=== PATIENT | female | born 1950 | race Caucasian/White ===

== ENCOUNTER → 2023-10-25 15:37 | Outpatient (REF) | payer MEDICARE, OTHER, SELFPAY ==
[2023-10-25 16:16] LABS: Urine Albumin Negative (Neg - Trace); Urine Bilirubin Negative (Negative); Urine Character Clear (Clear); Urine Color Yellow; Urine Glucose Negative (Negative); Urine Ketone Trace (Negative); Urine Leukocyte 1+ (Negative); Urine Nitrite Negative (Negative); Urine Occult Blood Negative (Negative); Urine Urobilinogen 1+ (Neg - 1+)
[2023-10-25 16:17] LABS: % Basophils 0.3 % (0-2); % Eosinophils 0.7 % (0-6); % Immature Granulocytes 0.5 % (0-0.5); % Lymphocytes 15.8 % (20.5-51.1); % Monocytes 8.2 % (1.7-9.3); % Neutrophils 74.5 % (42.2-75.2); Absolute Eosinophils 0.1 10^3/uL (0-0.7); Absolute Immature Granulocytes 0.1 10^3/uL (0-0.05); Absolute Lymphocytes 1.7 10^3/uL (1.2-3.4); Absolute Monocytes 0.9 10^3/uL (0.1-0.6); Absolute Neutrophils 8.1 10^3/uL (1.4-6.5); Hematocrit 40.3 % (37.0-47.0); Hemoglobin 13.9 g/dL (12.0-16.0); Mean Corp Hgb Conc. 34.5 g/dL (33.0-37.0); Mean Corpuscular Hgb 31.1 pg (27.0-31.0); Mean Corpuscular Volume 90.2 fL (81.0-99.0); Mean Platelet Volume 9.5 fL (7.4-10.4); Nucleated Red Blood Cells % 0 %; Platelet Count 234 10^3/uL (130-400); Red Blood Cell Count 4.47 10^6/uL (4.20-5.40); Red Cell Dist. Width 13.4 % (11.5-14.5); White Blood Cell Count 10.9 10^3/uL (4.8-10.8)
[2023-10-25 16:23] LABS: Urine Red Blood Cell None Seen /HPF (0-2)
[2023-10-25 16:40] LABS: ALT (SGPT) 16 U/L (0-35); AST (SGOT) 23 U/L (14-36); Albumin 4.3 g/dl (3.5-5.0); Alkaline Phosphatase 68 U/L (38-126); Blood Urea Nitrogen 17 mg/dl (7-17); Calcium 9.6 mg/dl (8.4-10.2); Carbon Dioxide 28 mmol/L (22-30); Chloride 102 mmol/L (98-107); Glucose 99 mg/dl (70-99); Lipase 345 U/L (23-300); Sodium 136 mmol/L (135-145); Total Bilirubin 0.7 mg/dl (0.2-1.3); Total Protein 7.2 g/dl (6.3-8.2); eGFR > 60.00
== END ==
LOC: REG 15:37
PROVIDERS: ATTENDING PHYSICIAN Nurse Practitioner Adult Health
DX: Z09 Encounter for follow-up examination after completed treatment for conditions other than malignant neoplasm (principal); R79.9 Abnormal finding of blood chemistry, unspecified; R82.90 Unspecified abnormal findings in urine; R74.8 Abnormal levels of other serum enzymes
CPT/HCPCS: 36415; 80053; 81003; 81015; 83690; 85025; 87086

== ENCOUNTER 2023-11-19 13:55 | Inpatient (IN) | payer MEDICARE, OTHER, SELFPAY ==
[2023-11-19] VITALS (7 sets, daily range): BP systolic 110–158; BP diastolic 65–89; BMI 24.3
--- NOTE | 2023-11-19 09:54 | ED.GENMED ---
History of Present Illness
<Rahat Rodriguez DO - Last Filed: 11/19/23 09:54>
General
Chief Complaint: Dizziness
Time Seen by Provider: 11/19/23 08:05
Travel History
Have you had any contact with someone who has COVID-19?: No
Do you have any symptoms of coronavirus? Fever > 100 degrees, chills, cough, shortness of breath, sore throat, loss of taste or smell, muscle aches, or headache?: No
<MARQUISE Adrian - Last Filed: 11/19/23 14:20>
General
Source: patient
Exam Limitations: none
Nursing documentation reviewed up to this point in time: agreed with
History of Present Illness
History of Present Illness:
Patient is a 73-year-old male brought to the ER by for evaluation. ports patient has had intermittent memory issues confusion over the past several days associated with dizziness, increased lethargy neck pain and double vision from
her right eye. Has reports patient's balance is off. He does report the patient was hospitalized intermittently in September for diarrhea vomiting cause was unknown. She was hospitalized in the [facility] in [facility].
Patient presents awake alert she is aware that she is confused she does admit to feeling neck pain double vision.
She denies any injury denies any chiropractic manipulation. Has not reports she has intermittent chills.
<MARQUISE Adrian - Last Filed: 11/19/23 14:20>
Review of Systems
Allergies reviewed?: Yes
All Other Systems: ROS reviewed and negative except as documented in HPI and ROS
Constitutional: Reports fatigue and chills
EENT: Reports other (double vision from right eye)
Respiratory: Reports no symptoms
Cardiac: Reports no symptoms
: Reports no symptoms
Musculoskeletal: Reports neck pain
Skin: Reports no symptoms; Denies rash
Neurological: Reports dizzy; Denies headache
Psychiatric: Reports no symptoms
<MARQUISE Adrian - Last Filed: 11/19/23 14:20>
General Physical Exam
General Presentation: no apparent distress
General age: appears stated age
General Skin: warm and dry
General Habitus: normal
General Mental: alert
General Hydration: dry mucous membranes
Eye Exam
Eye Exam: PERRL and other (extraoculuar movements not intact, left eye with deficit of movement to the midline + nystagmus left eye horizontal)
Eye Exam General: PERRL: bilateral
Pupil Exam: Bilateral: round and reactive
Cardiovascular Exam
Cardiovascular Exam: regular rate/rhythm, no murmur and normal peripheral pulses
Pulmonary Exam
Pulmonary Exam: lungs clear and no respiratory distress
Gastrointestinal Exam
Gastrointestinal Exam: non tender and soft
Neurological Exam
Neurological Exam: alert, oriented x3, no motor deficits, no sensory deficits and speech normal
Loc Coma Scale
Eye Opening: Spontaneous
Verbal Response: Oriented
Motor Response: Obeys Commands
GCS Total Score: 15
Cerebellar
Cerebellar Function: normal finger to nose
Musculoskeletal Exam
Musculoskeletal Exam: full ROM
Skin Exam
Skin Exam: normal color and warm/dry
Psychiatric Exam
Psychiatric Exam: normal mood/affect
Course
<Rahat Rodriguez DO - Last Filed: 11/19/23 09:54>
Orders/Labs/Results
Orders:
Orders
11/19/23 09:42
CT Head W/o Iv Contrast Urgent
Comment:
Reason For Exam: double vision headache confusion
IV Insert/Care/Rem.- Treatment PRN
11/19/23 10:01
Complete Blood Count/With Diff Urgent
Comprehensive Metabolic Panel Urgent
Vitamin B12 Urgent
Comment: ADD ON
11/19/23 10:32
CT Head & Neck Angio W/wo IV Urgent
Comment:
Reason For Exam: Dizziness, vision changes, neck pain
11/19/23 12:13
Aspirin 325 mg PO NOW STA
11/19/23 12:19
Electrocardiogram (*1) Stat
Reason for Study: Other
Other Reason for Exam: chest pain
EKG- Treatment ONCE
11/19/23 12:26
MR Brain W/o & With Contrast Routine
Comment: Any findings of Wernicke vs infarct
Reason For Exam: Left sided internuclear ophthalmoplegia
Recent pill cam endoscopy?: No
Ondansetron Injectable [Zofran] 4 mg IV NOW STA
NIH Stroke Scale As Directed
Directions: Per protocol
Neurological Checks As Directed
Frequency: Per unit guidelines
11/19/23 12:27
Add On- LAB Urgent
Tests Added?: Vitamin B1 and B12
Echo 2D MMode Color/Doppler Routine
Reason for Study: Thrombotic source for stroke-like sxs
11/19/23 12:44
STOOL [C difficile Antigen & Toxins] Urgent
MANUEL Source: Feces/Stool
Specimen Description:
Date Specimen was Collected: 11/19/23
Time Specimen was Collected: 12:41
Stool Culture Urgent
MANUEL Source: Feces/Stool
Specimen Description:
Date Specimen was Collected: 11/19/23
Time Specimen was Collected: 12:41
11/19/23 13:00
Thiamine Injection 500 mg 0.9% Sodium Chloride 250 ml [Nss] 250 ml IV Q8
11/19/23 13:35
Admit/Transfer Patient As Directed
Co-Sign Provider:
Level of Care: Inpatient admission
Assign to:: Telemetry
Physician / Group: Hospitalist
Diagnosis: ALMAZ
Reason for Telemetry: CVA/TIA
Date to Stop Telemetry: 11/22/23
Time to Stop Telemetry: 11:00
Reason for Hospitalization: CVA/TIA
Expected length of stay greater than two midnights?: Yes
ELOS- Estimated Length of Stay in days: 2
I certify the patient meets the requirements for IP care: Yes
11/19/23 13:36
Code Status As Directed
Resuscitation Status: Full Code
11/20/23 06:00
Cardiovascular Evaluation IN AM
Glycohemoglobin (HgbA1c) IN AM
11/20/23 08:00
Aspirin Low Dose EC [Aspir Low (Enteric Coated)] 81 mg PO DAILY
11/22/23 11:00
DC Protocol for Telemetry ONCE
Abnormal Lab Results
11/19/23
10:01
Absolute Neuts (auto) 7.5 H 10^3/uL
(1.4-6.5)
Absolute Lymphs (auto) 1.0 L 10^3/uL
(1.2-3.4)
Absolute Monos (auto) 0.8 H 10^3/uL
(0.1-0.6)
Neutrophils % 79.8 H %
(42.2-75.2)
Lymphocytes % 10.8 L %
(20.5-51.1)
Sodium 134 L mmol/L
(135-145)
Glucose 123 H mg/dl
(70-99)
11/19/23 10:01
11/19/23 10:01
Vital Signs
Initial and Last Documented VS:
Initial Vital Signs
Temp Pulse Resp BP Pulse Ox
98.4 F 92 16 147/89 97
11/19/23 07:16 11/19/23 07:16 11/19/23 07:16 11/19/23 07:16 11/19/23 07:16
Last Documented Vital Signs
Temp Pulse Resp BP Pulse Ox
98.4 F 84 16 126/76 97
03/03/24 07:16 11/19/23 13:00 11/19/23 13:00 11/19/23 13:00 11/19/23 13:00
<MARQUISE Adrian - Last Filed: 11/19/23 14:20>
Orders/Labs/Results
Orders:
Orders
11/19/23 09:42
CT Head W/o Iv Contrast Urgent
Comment:
Reason For Exam: double vision headache confusion
IV Insert/Care/Rem.- Treatment PRN
11/19/23 10:01
Complete Blood Count/With Diff Urgent
Comprehensive Metabolic Panel Urgent
Vitamin B12 Urgent
Comment: ADD ON
11/19/23 10:32
CT Head & Neck Angio W/wo IV Urgent
Comment:
Reason For Exam: Dizziness, vision changes, neck pain
11/19/23 12:13
Aspirin 325 mg PO NOW STA
11/19/23 12:19
Electrocardiogram (*1) Stat
Reason for Study: Other
Other Reason for Exam: chest pain
EKG- Treatment ONCE
11/19/23 12:26
MR Brain W/o & With Contrast Routine
Comment: Any findings of Wernicke vs infarct
Reason For Exam: Left sided internuclear ophthalmoplegia
Recent pill cam endoscopy?: No
Ondansetron Injectable [Zofran] 4 mg IV NOW STA
NIH Stroke Scale As Directed
Directions: Per protocol
Neurological Checks As Directed
Frequency: Per unit guidelines
11/19/23 12:27
Add On- LAB Urgent
Tests Added?: Vitamin B1 and B12
Echo 2D MMode Color/Doppler Routine
Reason for Study: Thrombotic source for stroke-like sxs
11/19/23 12:44
STOOL [C difficile Antigen & Toxins] Urgent
MANUEL Source: Feces/Stool
Specimen Description:
Date Specimen was Collected: 11/19/23
Time Specimen was Collected: 12:41
Stool Culture Urgent
MANUEL Source: Feces/Stool
Specimen Description:
Date Specimen was Collected: 11/19/23
Time Specimen was Collected: 12:41
11/19/23 13:00
Thiamine Injection 500 mg 0.9% Sodium Chloride 250 ml [Nss] 250 ml IV Q8
11/19/23 13:35
Admit/Transfer Patient As Directed
Co-Sign Provider:
Level of Care: Inpatient admission
Assign to:: Telemetry
Physician / Group: Hospitalist
Diagnosis: ALMAZ
Reason for Telemetry: CVA/TIA
Date to Stop Telemetry: 11/22/23
Time to Stop Telemetry: 11:00
Reason for Hospitalization: CVA/TIA
Expected length of stay greater than two midnights?: Yes
ELOS- Estimated Length of Stay in days: 2
I certify the patient meets the requirements for IP care: Yes
11/19/23 13:36
Code Status As Directed
Resuscitation Status: Full Code
11/20/23 06:00
Cardiovascular Evaluation IN AM
Glycohemoglobin (HgbA1c) IN AM
11/20/23 08:00
Aspirin Low Dose EC [Aspir Low (Enteric Coated)] 81 mg PO DAILY
11/22/23 11:00
DC Protocol for Telemetry ONCE
Abnormal Lab Results
11/19/23
10:01
Absolute Neuts (auto) 7.5 H 10^3/uL
(1.4-6.5)
Absolute Lymphs (auto) 1.0 L 10^3/uL
(1.2-3.4)
Absolute Monos (auto) 0.8 H 10^3/uL
(0.1-0.6)
Neutrophils % 79.8 H %
(42.2-75.2)
Lymphocytes % 10.8 L %
(20.5-51.1)
Sodium 134 L mmol/L
(135-145)
Glucose 123 H mg/dl
(70-99)
11/19/23 10:01
11/19/23 10:01
Vital Signs
Initial and Last Documented VS:
Initial Vital Signs
Temp Pulse Resp BP Pulse Ox
98.4 F 92 16 147/89 97
11/19/23 07:16 11/19/23 07:16 11/19/23 07:16 11/19/23 07:16 11/19/23 07:16
Last Documented Vital Signs
Temp Pulse Resp BP Pulse Ox
98.4 F 84 16 126/76 97
11/19/23 07:16 11/19/23 13:00 11/19/23 13:00 11/19/23 13:00 11/19/23 13:00
<MARQUISE Adrian - Last Filed: 11/19/23 14:20>
MDM/Problems Addressed
Differential Diagnosis Includes:
Not limited to dehydration, stroke, dissection
MDM/Problems Addressed:
Patient is a 73-year-old female brought by . Patient has had intermittent vomiting diarrhea episodes was hospitalized in another institution in September. Patient with a past several days however has had memory issues has had double vision
slightly off balance. As documented patient has a palsy of her left eye(limited and not full movements to medial aspect ) on exam with mild nystagmus horizontal of right eye. normal [id number]. She is awake alert she is able to give
history. she aware that she is intermittently confused. Patient eval by ED physician . CT head unremarkable CT head head and neck and unremarkable. Patient was eval by neurology who feels that this patient has internuclear ophthalmoplegia.
Thiamine ordered aspirin ordered will require admission mri.
<MARQUISE Adrian - Last Filed: 11/19/23 14:20>
*Radiology
Radiology exam reviewed: radiology read reviewed
*Pulse Oximetry
Patient hypoxic: no
*Critical Care Note
Total Time (30-74mins, 75-104mins- exclusive of procedures): Not Applicable
ED Attending Note
<Rahat Rodriguez, DO - Last Filed: 11/19/23 09:54>
ED Attending Note
Patient seen and examined by attending physician: Yes
I performed the substantive portion of visit, reviewed & personally made and approve the management plan that is documented in note by myself or BLU.: Yes
-
Portions of this chart may have been created with voice recognition software.� Occasional wrong word or��sound alike� substitutions may have occurred due to the inherent limitations of voice recognition software.
Discharge Plan
Departure
Patient Disposition: Admit
Date of Disposition: 11/19/23
Time of Disposition: 12:25
Admit to: Med/Surg
Admit to doctor: hospitalist
Presentation/result/management discussed w/ accepting MD/DO: Hospitalist
Patient with high blood pressure during this ER visit?: Yes
Condition: Fair
Covid-19: Not Applicable
Discharge Problem:
Internuclear ophthalmoplegia
Interventions
Interventions:
*ED COVID-19 Vaccine History Last Done: 11/19/23 07:16
[2023-11-19 10:11] LABS: % Basophils 0.2 % (0-2); % Eosinophils 0.3 % (0-6); % Immature Granulocytes 0.4 % (0-0.5); % Lymphocytes 10.8 % (20.5-51.1); % Monocytes 8.5 % (1.7-9.3); % Neutrophils 79.8 % (42.2-75.2); Absolute Monocytes 0.8 10^3/uL (0.1-0.6); Absolute Neutrophils 7.5 10^3/uL (1.4-6.5); Hematocrit 39.5 % (37.0-47.0); Hemoglobin 13.8 g/dL (12.0-16.0); Mean Corp Hgb Conc. 34.9 g/dL (33.0-37.0); Mean Corpuscular Volume 88.8 fL (81.0-99.0); Mean Platelet Volume 9.5 fL (7.4-10.4); Nucleated Red Blood Cells % 0 %; Platelet Count 224 10^3/uL (130-400); Red Blood Cell Count 4.45 10^6/uL (4.20-5.40); Red Cell Dist. Width 12.9 % (11.5-14.5); White Blood Cell Count 9.4 10^3/uL (4.8-10.8)
[2023-11-19 10:29] LABS: ALT (SGPT) 17 U/L (0-35); AST (SGOT) 20 U/L (14-36); Albumin 4.3 g/dl (3.5-5.0); Alkaline Phosphatase 58 U/L (38-126); Blood Urea Nitrogen 15 mg/dl (7-17); Calcium 9.6 mg/dl (8.4-10.2); Carbon Dioxide 26 mmol/L (22-30); Chloride 100 mmol/L (98-107); Glucose 123 mg/dl (70-99); Sodium 134 mmol/L (135-145); Total Bilirubin 0.8 mg/dl (0.2-1.3); Total Protein 6.9 g/dl (6.3-8.2); eGFR > 60.00
--- NOTE | 2023-11-19 12:28 | CON.NEURO4 ---
Consultation - Neurology 4
-
CONSULTING PHYSICIAN: Royal Lopez
REFERRING PHYSICIAN: ER
DICTATED BY: Royal Lopez
DATE/TIME OF REQUEST: 11/19/23
DATE/TIME OF CONSULTATION: 11/19/23
Reason for Consultation: Dizziness, diplopia
History of Present Illness:
Patient is a 73 year old right handed woman with no significant chronic medical conditions presenting to hospital because of dizzines, neck pain, binocular diplopia starting in the past 3-4 days. Patient had URI symptoms diagnosed as laryngitis in
the very beginning of September, and then in late September and early October developed right sided abdominal pain, vomiting, and diarrhea leading to hospitalization near their [place] in [facility]. She had imaging including CT abdomen pelvis,
imaging of gallbladder, CT head and L spine with suspicion for biliary cholic or viral gastroenteritis, no invasive procedures performed, was treated symptomatically and ultimately discharged home. After this hospitalization patient felt very
fatigued with inactivity and generalized weakness, had poor appetite and constipation, still had some intermittent abdominal pain. In the past 3-4 days noticed new symptoms of dizziness, neck pain, and horizontal binocular diplopia. She says that
she gets very uncomfortable with worse diplopia looking to the right. Has chronic tinnitus. No recent head or neck trauma. There may have been some minor slurring in speech. Patient does feel that she has dysphagia since the hospitalization
weeks ago. No odynophagia. Reports appetite has not been normal throughout the month of October. No history of stroke or TIA. Endorses mild photophobia throughout October.
Past Medical History: No chronic medical conditions
Surgical History: Tubal ligation
Family History: Non-contributor
Social History: Retired metalworker, lives with her , has adult children, rarely has wine, no tobacco or recreational drugs
Review of Symptoms:
Patient denies any fever, headache, chest pain, shortness of breath, GI or symptoms.
Physical Exam:
Elderly woman appears her stated age, no overt distress, pleasant, mild limitation in range of horizontal motion of the neck, no meningmismus. No neck masses, no rashes on the skin. Heart rate regular, breathing unlabored, abdomen soft non tender,
no lower extremity edema.
Neurologic Examination:
The patient is awake, alert and oriented x 3. She is able to follow commands and answer questions appropriately. There is no aphasia or dysarthria. On cranial nerve assessment, pupils are 3 mm bilateral, round and reactive to light and
accommodation. Visual cid are full. Patient has gaze evoked direction changing nystagmus on left, right, and upward gaze. There is limited left eye adduction with rightward gaze along with nystagmus consistent with a left sided internuclear
ophthalmoplegia. Left gaze appears normal. Facial sensations are intact and bilaterally symmetrical, there is no facial asymmetry. Hearing is intact bilaterally to normal conversation volume. Tongue palate and uvula are midline.
Sternocleidomastoid strengths are full bilaterally. Motor strengths are 5/5 bilateral upper and lower extremities on medical research Arbon scale. There is no drift or involuntary movement noted. Deep tendon reflexes are 2+ bilateral upper and
lower extremities and Babinski is absent bilaterally. Intact to light touch throughout. There was no extinction noted on double simultaneous stimulation. Coordination is intact by finger to nose bilaterally. Gait is a bit unsteady but walk
independently, she does sway a bit to the left at the end of the exam, negative Rhomberg.
Neuro Imaging:
CT head non contrast no acute abnormality
CTA head and neck no dissection of carotid or vertebral arteries seen.
Impressions
1. Patient with previous abdominal illness in October with poor appetite following presents with new dizziness, diplopia, gait problems and neurologic finding of left sided (ALMAZ) internuclear ophthalmoplegia which indicates dysfunction in the
brainstem at the level of the nikolas. Most suspicious etiologies are either thiamine/B1 deficiency due to the recent GI issues and poor appetite versus ischemic stroke of the nikolas. No large vessel occlusions or significant stenosis of vertebral or
basilar arteries on the CTA of the head and neck and no evidence of dissection.
2. Recent GI illness may have been biliary cholic versus viral gastroenteritis?
Recommendations:
1. Give aspirin 325 mg once now and start aspirin 81 mg daily
2. Goal normotension
3. Neurologic checks and NIH scales
4. Start high dose IV thiamine 500 mg q8hr due to concern for thiamine deficiency as cause of the ALMAZ
5. Check Vitamin B1 and B12
6. Check MRI of the brain with and without contrast
7. Speech, physical, occupational therapy evaluations
8. Monitor on cardiac telemetry and check TTE
Will follow
Discussed patient care with: Patient and her , ED
[2023-11-19] MEDS: THIAMINE INJECTION 255 MG IV ×2 (13:08→17:30)
[2023-11-19] MEDS: ASPIRIN 325 MG PO (13:10)
[2023-11-19] MEDS: ZOFRAN 4 MG IV (13:10)
--- NOTE | 2023-11-19 13:22 | HPS.HSE ---
Family Physician
-
Family Physician: Kj Jarquin
Chief Complaint
-
Dizziness and double vision
History of Present Illness
This is a 73-year-old female with no past no significant past medical history or significant past family history who presents to the emergency department with approximately 3 days of dizziness, ambulatory dysfunction and double vision.
Patient was recently seen for GI symptoms and had a mild pancreatitis at that time. It seems like GI symptoms are resolved. She had been in usual state of health up until about 3 days ago. She started noticing double vision on and dizziness with
walking. She denies vertigo. She denies any focal weakness in her arms or legs. She denies any loss of sensation. She denies any speech difficulty or facial asymmetry. She denies any bladder or bowel incontinence. Patient reports chronic
intermittent headaches which are unchanged from prior. She specifically denies any focal eye irritation, swelling, tearing, redness or pain.
On arrival in the ED she had stable vital signs. Rhythm strip shows normal sinus rhythm. CT of the head was negative. CT angio head and neck was negative. Chemistries were all within normal limits. CBC also within normal limits.
Medical History
Past Medical History
Past Medical History: Reports None
Past Surgical History: Reports Gynocological
Social History
Tobacco: Non-smoker
Alcohol: Occasional
Drug: None
Personal:
Living: With Family
Employment: Retired
Family History
Family History: Not pertinent
Allergies / Home Medications
Allergies reflects when Allergies were last updated in [facility].
Home Medications with original date entered in [facility]
Allergy/Medication List:
Allergies
Allergy/AdvReac Type Severity Reaction Status Date / Time
latex Allergy Rash Verified 05/05/21 08:21
mold Allergy RUNNY Verified 05/05/21 08:21
NOSE/STUFFY
NOSE
Enviornmental Allergy runny nose Uncoded 05/05/21 08:21
INSECT BITES Allergy SWELLING, Uncoded 05/05/21 08:21
AND
ITCHINESS
POISON ANA Allergy RASH AND Uncoded 05/05/21 08:21
BLISTERS
SPICY FOOD Allergy DIARRHEA Uncoded 05/05/21 08:21
Home Medications
Lactobac no.2-Bifidobac no.1-S. thermo 112.5 billion cell capsule (Visbiome) 1 cap PO DAILY 11/19/23
acetaminophen 500 mg tablet (Tylenol Extra Strength) 1,000 mg PO Q6H PRN mild pain 11/19/23
omeprazole 20 mg capsule,delayed release 20 mg PO DAILY 11/19/23
Review of Systems
-
History Source: Patient
Constitutional: Reports No Symptoms
EENT: Reports No Symptoms
Respiratory: Reports No Symptoms
Cardiac: Reports No Symptoms
Abdomen/GI: Reports No Symptoms
: Reports No Symptoms
Musculoskeletal: Reports No Symptoms
Skin: Reports No Symptoms
Neurological: Reports Dizzy
Endocrine: Reports No Symptoms
Hematologic/Lymphatic: Reports No Symptoms
Psych: Reports No Symptoms
Physical Exam
Vital Signs
Vital Signs
Temp Pulse Resp BP Pulse Ox
98.4 F 84 16 126/76 97
11/19/23 07:16 11/19/23 13:00 11/19/23 13:00 11/19/23 13:00 11/19/23 13:00
Physical Exam
General: Well Developed, Well Nourished and No Apparent Distress
HEENT: NormoCephalic, Anicteric, Moist mucous membranes, Atraumatic, PERRLA, [place] Conjunctivae, No Ptosis, Nose Appears Normal, Ears Appear Normal and Neck Nontender
Respiratory: Clear
Cardiac: S1/S2 and Regular Rhythm
Breast: Deferred by me
GI: Soft, Non Tender, Non Distended and Normal Bowel Sounds
Rectal: Deferred by Provider
Genito-urinary: Deferred by me
Musculoskeletal: No Clubbing, No Cyanosis and No Edema
Skin: Warm
Neuro: AO x 3, Cranial Nerves Intact (Cranial nerves grossly intact. Double vision elicited on right lateral gaze with both eyes open, absent when each eye closed separately.), No Sensory Deficits and DTR's Intact & Symmetrical
Hematologic/Lymphatic: No Lymphadenopathy
Psych: Calm
Laboratory Results
-
11/19/23 10:01
11/19/23 10:01
Laboratory Results
Total Bilirubin 0.8 mg/dl (0.2-1.3) 11/19/23 10:01
AST 20 U/L (14-36) 11/19/23 10:01
ALT 17 U/L (0-35) 11/19/23 10:01
Alkaline Phosphatase 58 U/L (38-126) 11/19/23 10:01
Data Reviewed
-
CT Scan: Report Reviewed by me
Medical Tests (Nuc Med, Echo, EKG etc): Image Personally Visualized and interpreted
Lab Data: Labs Reviewed by me
Old Records: Reviewed
Impression/Plan
-
IMPRESSION:
73 y.o female with diplopia on right lateral gaze and dizziness. No other focal deficit. Negative CT head and CTA head/neck. Exam c/w ALMAZ affecting left eye tracking suggest of left pontine lesion. Either ischemic given acute onset, possibly
inflammatory (though less likely with acuity) and neuro suspects thiamine deficiency.
PLAN:
1. Double vision - CVA/TIA vs thiamine deficiency vs inflammatory disease of white matter (MS).
- admit to telemetry
- MRI to rul out acute stroke and eval for inflammatory changes
- per neuro, started on aspirin
- also started on thiamine
- checking b12, tsh, a1c and lipid panel
- neurochecks q 6 hours
- may require temporary eye patching for dizziness and ambulatory function
- PT/OT evaluation
DVT PPX with lovenox sq
Full Code
[2023-11-19 15:21] LABS: Vitamin B12 917 pg/ml (239-931)
[2023-11-19] MEDS: LOVENOX 40 MG SC (18:37)
[2023-11-20] MEDS: THIAMINE INJECTION 255 MG IV ×4 (00:57→23:53)
[2023-11-20] MEDS: TYLENOL 650 MG PO ×2 (01:03→10:12)
[2023-11-20 03:00] VITALS: BP 113/68
[2023-11-20 05:57] LABS: Blood Urea Nitrogen 12 mg/dl (7-17); Calcium 9.5 mg/dl (8.4-10.2); Carbon Dioxide 28 mmol/L (22-30); Chloride 102 mmol/L (98-107); Estimated Creatinine Clearance 65 ml/min; Glucose 110 mg/dl (70-99); HDL Cholesterol 67 mg/dl; LDL Cholesterol, Calculated 135 mg/dl; Potassium 4.4 mmol/L (3.5-5.1); Sodium 135 mmol/L (135-145); Total Cholesterol 222 mg/dl (50-199); Triglyceride 100 mg/dl (10-149); Very Low Density Lipoprotein 20 mg/dl (0-30); eGFR > 60.00
--- NOTE | 2023-11-20 06:51 | W.PN.HOSP.TC ---
Today's Communication/Plan
-
ASA Plavix Statin
ST/PT/OT
follow stool studies
pending VSE and MRI cervical spine
Assessment / Plan
Assessment / Plan
Physical Exam
General: Well Developed, Well Nourished and No Apparent Distress
HEENT: NormoCephalic, Anicteric, Moist mucous membranes, Atraumatic, PERRLA. Horizontal Nystagmus elicited on right lateral gazeLimited motion neck d/t pains/stiffness
Respiratory: Clear
Cardiac: S1/S2 and Regular Rhythm
GI: Soft, Non Tender, Non Distended and Normal Bowel Sounds
Musculoskeletal: No Clubbing, No Cyanosis and No Edema
Neuro: AO x 3
Psych: Calm
73 y.o female with diplopia on right lateral gaze and dizziness.� No other focal deficit.� Negative CT head and CTA head/neck.� Exam c/w ALMAZ affecting left eye tracking suggest of left pontine lesion.� Either ischemic given acute onset, possibly
inflammatory (though less likely with acuity), possible Thiamine deficiency
PLAN:
Double vision - ALMAZ (internuclear ophthalmoplegia)
Hyperlipidemia
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
- MRI appreciated no acute abn's
- Neuro eval appreciated likely small ischemic stroke nikolas causing ALMAZ
-patient started on ASA Plavix for 21 days
- also started on thiamine
- checking b12, tsh wnl
- a1c 5.9 prediabetes
- lipid panel appreciated hyperlipidemia, started on statin
- neurochecks
- PT/OT eval appreciated
Neck Siffness pain possibly d/t ALMAZ
-checking MRI cervical spine, patient also reports hx scoliosis
Persistent GI symptoms intermittent diarrhea dark Stools since September
no significant Anemia
Dysphagia
-Speech Eval appreciated, pending VSE exam
-GI eval appreciated follow stool studies, eventual outpt EGD w/ dilation
DVT PPX Lovenox sq
Full Code
Discussed with patient, her Gorge, and her daughter
I spent a total of 58 minutes with the patient or on the floor. More than 50% of this time involved counseling and coordination of care.
Anticipated Discharge: 24 - 48 hours
Subjective/Interval History
-
Date of Service: November 20, 2023
Seen and examined at bedside in no acute distress. Reports Headache with associate neck stiffness. Dizziness diplopia exacerbated with right lateral gaze. Limited head motion.
Objective Data
-
Labs:
Laboratory Results
11/20/23
04:46
Sodium 135
Potassium 4.4
Chloride 102
Carbon Dioxide 28
BUN 12
Creatinine 0.7
Glucose 110 H
Calcium 9.5
Vital Signs:
Vital Signs
Temp Pulse Resp BP Pulse Ox
97.8 F 80 14 113/68 95
11/20/23 03:00 11/20/23 03:00 11/20/23 03:00 11/20/23 03:00 11/20/23 03:00
I&O
11/18/23 11/19/23 11/20/23
06:59 06:59 06:59
Intake Total 120 / 120
Balance 120 / 120
[2023-11-20 07:40] VITALS: BP 143/116
[2023-11-20] MEDS: ASPIR LOW (ENTERIC COATED) 81 MG PO (08:08)
[2023-11-20] MEDS: PROTONIX 20 MG PO (08:08)
--- NOTE | 2023-11-20 08:16 | W.PN.NEURO.1 ---
Addendum entered and electronically signed by Justin Lopez MD 11/20/23 19:19:
Correction should read
'Neurologic examination shows normal mental status
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
Addendum entered and electronically signed by Justin Lopez MD 11/20/23 12:47:
I saw and evaluated this patient I reviewed the note by Taryn Lang agree with the findings the following comments:
73-year-old woman with no significant chronical medical problems and who had recent gastrointestinal illness in October with poor appetite, fatigue, occasional vomiting following this illness presents to the hospital with a few 4 days of dizziness,
neck pain, binocular diplopia. No acute events overnight the patient reports still has neck pain, still continued double vision worsens with gaze to the right side.
Neurologic examination shows normal mental status
Cranial nerve examination again left hemiplegia with incomplete abduction of the left eye and gaze evoked nystagmus on looking to the right, gaze evoked nystagmus is also seen with looking to the left. No other cranial nerve deficits are seen,
visual brown are full, smile symmetric no dysarthria intact to light touch in both sides of the face.
Motor examination shows no pronator drift, no ataxia on finger-nose testing bilaterally and shoulder abduction arm flexion hip flexion 5/5 bilaterally.
Intact reflexes 2+ in biceps triceps brachialis patella and Achilles.
MRI of the brain with no infarct observed there is mild microangiopathy no masses or edema there is no abnormal enhancement no abnormal dural or leptomeningeal enhancement.
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 Patient had had gastrointestinal illness in October and had had poor appetite and continued with still some
degree of GI symptoms which arouse my concern for the potential for vitamin B1/thiamine deficiency.
Patient continues to have an internuclear ophthalmoplegia on examination which I feel makes a thiamine deficiency as cause unlikely given we have replaced this with high doses of IV thiamine.
Very likely that the patient has had a very small ischemic stroke in the nikolas causing the internuclear ophthalmoplegia which in turn causes dizziness, diplopia, gait difficulty and can produce headache and neck pain as well. Age and hyperlipidemia
and recent stressors and recent illness seem to be most likely risk factors for stroke. CTA of the head and neck did not show any high-grade stenosis or occlusion nor dissection. Patient has been in fairly good vascular health however so I do not
feel that we have a completely satisfactory explanation for her stroke. Playing is the most likely cause of small vessel disease. Unclear to me on if there is a unifying diagnosis explaining her recent GI issues and then a stroke.
Recommendations:
-Check RPR, HIV, SONALI, ESR/CRP, ANCA
-Add plavix, plan for 21 days DAPT then aspirin thereafter
-Avoid Omeprazole as this can decrease efficacy of plavix
-Neurologic checks and NIH scales
-Cardiac telemetry and check TTE
-Speech, PT/OT
Will follow
Original Note:
Documented by User: Taryn Escobar NP 11/20/23 12:35
Today's Communication / Plan
-
.
Neuro Assessment/Plan
Assessment
This is a 73-year-old right-handed female with no significant chronic medical conditions who presented to on 11/19/23 with report of previous abdominal illness in October with poor appetite following presents with new dizziness, diplopia, gait
problems and neurologic finding of left sided (ALMAZ) internuclear ophthalmoplegia which indicates dysfunction in the brainstem at the level of the nikolas.
�-CT head 11/19/23: No acute intracranial abnormality.
-CTA head/neck 11/19/23: No CTA evidence for high-grade stenosis or occlusion of the arterial vasculature of the head or neck.
-MRI brain 11/19/23: No evidence for acute abnormality. Mild to moderate diffuse atrophy. Minimal periventricular leukomalacia.
I. �Likely a non-visualized ischemic stroke of the nikolas.
II. Thiamine/B1 deficiency due to the recent GI issues and poor appetite less likely given lack of improvement with IV thiamine replacement.
III. No large vessel occlusions or significant stenosis of vertebral or basilar arteries on the CTA of the head and neck and no evidence of dissection.
IV. Recent GI illness may have been biliary cholic versus viral gastroenteritis?
Plan
-Continue aspirin 81mg daily, indefinitely. Initiate Plavix 75mg daily for 21 days of DAPT. After 21, discontinue Plavix and continue aspirin 81mg daily only, indefinitely.
-Goal normotension.
-Monitor on cardiac telemetry and check TTE.
-Check Vitamin B1 and other metabolic abnormalities, see orders.
-LDL goal <70. LDL is 135. Initiate atorvastatin 40mg daily.
-Goal normoglycemia, hbA1c is 5.9.
-Provide patient with a stroke education packet.
-NIHSS and neurological checks per unit guidelines.
-PT/OT/ST evaluations
-DVT prophylaxis.
-Patient needs follow-up as an outpatient with Neurology, may see the [facility]PARTMENT MANAGER or Dr. Lopez.
Subjective/Objective
Subjective Data
Date of Service: November 20, 2023
No acute events overnight. Patient reports ongoing right neck discomfort, headache, dizziness, horizontal diplopia with right gaze, and photophobia. She denies any speech/swallowing difficulty, nausea, numbness, weakness, chest pain, palpitations,
and shortness of breath.
Objective Data
Vital Signs
Temp Pulse Resp BP Pulse Ox
97.8 F 80 14 113/68 95
11/20/23 03:00 11/20/23 03:00 11/20/23 03:00 11/20/23 03:00 11/20/23 03:00
Lab Results
11/19/23 10:01
11/20/23 04:46
Sodium 135 mmol/L (135-145) 11/20/23 04:46
Potassium 4.4 mmol/L (3.5-5.1) 03/04/24 04:46
BUN 12 mg/dl (7-17) 11/20/23 04:46
Glucose 110 mg/dl (70-99) H 11/20/23 04:46
Calcium 9.5 mg/dl (8.4-10.2) 11/20/23 04:46
LDL Cholesterol, Calc 135 mg/dl 11/20/23 04:46
Vitamin B12 917 pg/ml (239-931) 11/19/23 10:01
Patient Allergies
latex Allergy (Verified 05/05/21 08:21)
Rash
mold Allergy (Verified 05/05/21 08:21)
RUNNY NOSE/STUFFY NOSE
Enviornmental Allergy (Uncoded 05/05/21 08:21)
runny nose
INSECT BITES Allergy (Uncoded 05/05/21 08:21)
SWELLING, AND ITCHINESS
POISON ANA Allergy (Uncoded 05/05/21 08:21)
RASH AND BLISTERS
SPICY FOOD Allergy (Uncoded 05/05/21 08:21)
DIARRHEA
LDL Level: >70, statin ordered
Review of Systems
-
History Source: Patient
EENT: Blurry Vision (with right gaze) and Other (diplopia with right gaze)
Respiratory: Negative Cough or Trouble Breathing
Cardiac: Negative Chest Pain or Palpitations
Genitourinary: Negative Difficulty Voiding
Musculoskeletal: Neck Pain (right-sided)
Neuro: Dizzy and Headache; Negative Weakness, Numbness, Ataxia, Tremors or Speech Problem
Physical Exam
-
General: Well Developed, Well Nourished and No Apparent Distress
Eyes: No Ptosis and PERRLA
HEENT: Normocephalic and Atraumatic
Neck: Full Range of Motion
Respiratory: No Dyspnea
GI: Non-distended
Extremities: No Clubbing, No Cyanosis and No Edema
Psych: Unremarkable
Extended Neurological Exam
Mood & Affect: Mood Unremarkable and Affect Unremarkable
Attention Span & Concentration: Awake, Alert and Interactive
Memory: Unremarkable (AAOx3) and Able to Recall
Tremor: Hand Tremor Absent and Head Tremor Absent
Involuntary Movement: None
Speech: Quality Unremarkable, Quantity Unremarkable and Rate of Production Unremarkable
Cranial Nerve II: Left Eye: Pupillary Reactivity Unremarkable, Pupillary Size Unremarkable and Visual Brown Intact
Cranial Nerve II: Right Eye: Pupillary Reactivity Unremarkable, Pupillary Size Unremarkable and Visual Brown Intact
Cranial Nerves III, IV, : Extraocular Movement: Nystagmus with Extreme Gaze to Left, Nystagmus with Extreme Gaze to Right and Other (Left eye with restricted movement to the right.)
Cranial Nerve V: Facial Sensation: Intact to Light Touch
Cranial Nerve VII: Facial Symmetry: Normal Facial Symmetry
Cranial Nerve VIII: Hearing: Unremarkable Hearing to Normal Conversational Volume
Cranial Nerves IX, X: Palate Movement: Palate Elevation Symmetric
Cranial Nerve XI: Shoulder Shrug: Unremarkable
Cranial Nerve XII: Tongue Protusion: Midline
Muscle Strength, Overall: Full Throughout
Muscle Bulk & Tone: Bulk Unremarkable and Tone Unremarkable
Pronator Drift: No Drift in Upper Extremities and No Drift in Lower Extremities
Cold Sensation: Unremarkable
Vibration Sensation: Unremarkable
Touch Sensation: Double Simultaneous Stimulation Unremarkable
Coordination: [id number] Testing Unremarkable
Babinski Sign: Absent Bilaterally
Gait & Station: Up from Seated Without Problem
Modified [place] Score (MRS)
-
Modified [place] Scale (mRS): Slight disability. Able to look after own affairs.
Score: 2
Data Reviewed
-
CT-A: Report Reviewed and Image Reviewed
CT Head: Report Reviewed and Image Reviewed
MRI Head: Report Reviewed and Image Reviewed
Labs: Report Reviewed
Lipid Profile: Report Reviewed
HgbA1C: Report Reviewed
Reviewed with: Physician and Patient
NIH Stroke Score
Subsequent NIH Scale
Date of Subsequent NIH Scale: 11/20/23
Time of Subsequent NIH Scale: 09:15
NIH Stroke Score
Level of Consciousness: 0 - Alert
LOC Questions: 0-Answers both correctly
LOC Commands: 0-Performs both correctly
Best Horizontal Gaze: 1-Partial gaze palsy
Visual Brown: 0=Normal, no visual loss
Facial Palsy: 0=Normal, symmetrical
Motor - Right Arm: 0=No drift 10 seconds
Motor - Left Arm: 0=No drift 10 seconds
Motor - Right Le-No drift 5 seconds
Motor - Left Le-No drift 5 seconds
Limb Ataxia: 0-Absent
Sensation: 0-Normal
Best Language: 0-No aphasia
Dysarthria: 0-Normal
Extinction and Inattention: 0-No abnormality
Total Score:: 1
Medications
-
Active Medications
Generic Name Dose Route Start Last Admin
Trade Name Freq PRN Reason Stop Dose Admin
Acetaminophen 650 mg 11/19/23 15:29 11/20/23 01:03
Acetaminophen 325 Mg Tablet PO 12/17/23 15:28 650 mg
Q4HPRN PRN Administration
PHAN, mild pain, or temp >100.4F
Aspirin 81 mg 11/20/23 08:00 11/20/23 08:08
Aspirin 81 Mg (Enteric Coated) Tablet PO 12/18/23 07:59 81 mg
DAILY HAIDER Administration
Enoxaparin Sodium 40 mg 11/19/23 18:00 11/19/23 18:37
Enoxaparin Sodium 40 Mg/0.4 Ml Syringe SC 12/17/23 17:59 40 mg
QPM HAIDER Administration
Thiamine HCl 500 mg/ Sodium 255 mls @ 255 mls/hr 11/19/23 13:00 11/20/23 08:07
Chloride IV 12/17/23 12:59 255 mls
Q8 HAIDER Administration
Pantoprazole Sodium 20 mg 11/20/23 08:00 11/20/23 08:08
Pantoprazole 20 Mg Delayed Release Tablet PO 12/18/23 07:59 20 mg
DAILY HAIDER Administration
Home Medications
Medication Instructions Recorded
Lactobac no.2-Bifidobac no.1-S. 1 cap PO DAILY Gastrointestinal 11/19/23
thermo 112.5 billion cell capsule Issue
(Visbiome)
acetaminophen 500 mg tablet 1,000 mg PO Q6H PRN mild pain 11/19/23
(Tylenol Extra Strength)
omeprazole 20 mg capsule,delayed 20 mg PO DAILY Gastrointestinal 11/19/23
release Issue

Documented by User: Justin Lopez MD 11/20/23 12:39
Modified Bryce Score (MRS)
-
Score: 2
NIH Stroke Score
NIH Stroke Score
Total Score:: 1
[2023-11-20 09:08] LABS: Glycohemoglobin (HgbA1c) 5.9 % (4.0-5.6)
--- NOTE | 2023-11-20 10:59 | PTCARENOTE ---
Assumed care of patient at AM change of shift. NIHSS 0, but still reporting dizziness and blurred vision in the right eye. Patient and (at bedside) educated on the use of IV thiamine. Tylenol administered for a 4/10 pain headache - see NOV.
Pt now eating breakfast and talking with . Call hughes in reach.
[2023-11-20 11:17] LABS: TSH Reflex To Free T4 0.81 uIU/ml (0.47-4.68)
[2023-11-20 11:30] VITALS: BP 112/58
[2023-11-20] MEDS: TORADOL 15 MG IV (12:12)
[2023-11-20] MEDS: PLAVIX 300 MG PO (13:03)
[2023-11-20 13:10] LABS: Erythrocyte Sed Rate 13 mm/hour (0-20)
--- NOTE | 2023-11-20 14:08 | PTOTSP ---
SPEECH THERAPY SWALLOW EVALUATION:
Patient presents with WFL oral swallow and signs concerning for pharyngeal dysphagia characterized by globus sensation on RIGHT side of throat with dry solids, difficulty swallowing whole pills. Patient endorsed these symptoms as
chronic/progressive, reporting experiencing them for past several years. Dysphagia is of unclear etiology at this time, given chronicity of symptoms. Chronic pharyngeal dysphagia could be exacerbated by acute CVA if patient did in fact have CVA,
though MRI is negative for acute CVA at this time. Recommend Neurology to continue to follow to determine possible etiologies of chronic/progressive pharyngeal dysphagia symptoms. Recommend further assessment of swallow function via
Videofluoroscopic Swallow Study to define swallow physiology. Given chronicity of dysphagia symptoms and current pulmonary and respiratory status (breathing comfortably on room air, no CXR available), patient appears safe to continue oral diet until
VSE. Recommend Regular texture diet and thin liquids. Medications whole in puree. Aspiration precautions including: Upright positioning; Small single sips/bites; Slow rate of intake; Alternate textures solids/liquids during meals; Overchew foods.
Speech therapy to follow, assess diet tolerance and modify as appropriate, provide further recommendations following VSE and once etiology of dysphagia is determined, and provide continued education regarding aspiration risks/precautions. Discussed
with Dr. Mckeon via [place] text.
RECOMMEND:
1) Videofluoroscopic Swallow Study
2) Regular texture diet and thin liquids
3) Medications whole in puree
4) Aspiration precautions including: Upright positioning; Small single sips/bites; Slow rate of intake; Alternate textures solids/liquids during meals; Overchew foods
5) Speech therapy to follow, assess diet tolerance and modify as appropriate, provide further recommendations following VSE and once etiology of dysphagia is determined, and provide continued education regarding aspiration risks/precautions
6) Continued Neurology follow-up to determine possible etiologies of chronic/progressive pharyngeal dysphagia symptoms
--- NOTE | 2023-11-20 14:57 | CON.GI ---
Addendum entered and electronically signed by Carol Lazo MD 11/20/23 18:31:
I saw and examined the patient.
The CIDER MAKER or PA's note was reviewed and I agree with the note.
Comment:
Pt is a 73 y/o woman admitted with possible cva who has had several months of alternating diarrhea and constipation and dysphagia. Has had ring dilated in past. She did have evaluation at other OSH but we don't have records. She feels that she
has been doing worse. colon done in last year.
abd: soft, nontender
impression
alternating bowel habits/diarrhea
dysphagia
abd pain
plan:
get records
stool studies
will need eventual egd with dilation (elective)
PPI
diet as per speech
Addendum entered and electronically signed by Tatianna Singletary NP 11/20/23 16:08:
VSE pending. Seen by speech cleared for thin liquids and regular textures.
Original Note:
Consultation
-
Date/Time Consultation Requested: 11/20/2023
Date/Time Consultation Performed: 11/20/2023 @ 15:00
Requesting Provider: Dr. Mckeon
Performing Provider: MARQUISE Gonsalves; Dr. Lazo
Reason for Consultation: persistent diarrhea dark stools since September Intermittent associate dyspha
Medical History
Chief Complaint / HPI
Chief Complaint: dizziness, double vision
History of Present Illness:
The patient is a 73-year-old female with a past medical history significant for abnormal Pap smears, osteopenia, history of Schatzki ring with dilation in 2017, esophagitis, who presented to the emergency room on 11/18 with complaints of dizziness and
double vision. We are being asked to evaluate for persistent diarrhea with dark stool and dysphagia. Prior to admission she had complaints of 3 days of dizziness, difficulty with ambulation, and double vision. The patient reports that she has
been having ongoing GI symptoms since September. She notes that around that time prior to onset she did have a viral illness with subsequent profuse diarrhea. Her reports she has been in the hospital due to dehydration with ongoing diarrhea
with associated nausea and vomiting. They report undergoing workup in the emergency room but no pertinent findings were identified for cause of this. She notes that she continues with diarrhea that is very dark in color although less severe. She
denies any melena or hematochezia. Last episode was several days ago. She notes she was drinking prune juice and taking pro and prebiotic's. She notes she has had some more formed stools recently but not much. She continues with intermittent
nausea and vomiting although less frequent. She did start on Prilosec OTC to see if this would help with her nausea but this did not make much of a difference. She denies any overt heartburn symptoms. She denies any significant early satiety but
does admit to decreased appetite and has lost 8 pounds since September. She has had mild dysphagia with liquids and solids most days and feels at times the food can get stuck. She denies any need for forced regurgitation. She denies any
odynophagia. She denies any history of food impactions. She does also admit to a discomfort in the mid to right abdomen that has been somewhat regular on a daily basis. She notes that this is worse after eating meals. This is currently improved.
She denies any history of peptic ulcer disease or gallbladder disease. She denies any recent steroids but reports she was on Bactrim in early October for an infection. She denies any NSAID use. She reports drinking 1 glass of wine per day prior
to the onset of her symptoms in September but has not been drinking any alcohol since then. She denies any use of blood thinners. She denies any pertinent family history significant for GI cancers or diseases. Most recent EGD and colonoscopy as
noted below. Of note her endoscopy in 2017 did show esophagitis and Schatzki ring which was dilated by Dr. Tavarez. Her last colonoscopy was done last November with Dr. Vera with a adenomatous polyp and hyperplastic polyp removed but no random
biopsies were taken. Upon admission, she was evaluated by neurology who suspect she may have had a very small ischemic stroke causing her symptoms despite negative imaging. Underlying workup is in progress. She was placed on aspirin and Plavix
for plan of 21 days of dual antiplatelet therapy. It was advised she avoid omeprazole as this can decrease the efficacy of Plavix. A TTE was also ordered along with speech, PT, and OT therapy. AVSD is pending. In the ER, she underwent CT imaging
of the brain which showed no acute intracranial abnormalities. She also then underwent subsequent CT angio of the head and neck which was normal. Brain imaging also was done with MRI which showed no signs of acute stroke. Labs on admission
essentially unrevealing aside from an elevated CRP.
Past Medical History
Past Medical History: GERD and Other (abnormal Pap smear with high-grade dysplasia, history of Schatzki ring with dilation in 2017, LA grade a esophagitis, osteopenia)
Past Surgical History: Gynecological (Hysteroscopy with D&C, colposcopy, tubal ligation)
Social History
Tobacco: Non-Smoker
Alcohol: Occasional (none in the last 2 months)
Drug: None
Personal:
Living: With Family
Family History
Family History: Reviewed & Not Pertinent
Allergies / Home Medications
Allergy/AdvReac Type Severity Reaction Status Date / Time
latex Allergy Rash Verified 05/05/21 08:21
mold Allergy RUNNY Verified 05/05/21 08:21
NOSE/STUFFY
NOSE
Enviornmental Allergy runny nose Uncoded 05/05/21 08:21
INSECT BITES Allergy SWELLING, Uncoded 05/05/21 08:21
AND
ITCHINESS
POISON ANA Allergy RASH AND Uncoded 05/05/21 08:21
BLISTERS
SPICY FOOD Allergy DIARRHEA Uncoded 05/05/21 08:21
Medication Instructions Recorded
Lactobac no.2-Bifidobac no.1-S. 1 cap PO DAILY Gastrointestinal 11/19/23
thermo 112.5 billion cell capsule Issue
(Visbiome)
acetaminophen 500 mg tablet 1,000 mg PO Q6H PRN mild pain 11/19/23
(Tylenol Extra Strength)
omeprazole 20 mg capsule,delayed 20 mg PO DAILY Gastrointestinal 11/19/23
release Issue
Review of Systems
-
History Source: Patient
Constitutional: Reports Weight Loss
EENT: Reports Other (double/blurred vision)
Respiratory: Reports No Symptoms
Cardiac: Reports No Symptoms
Abdomen/GI: Reports Abdominal Pain, Nausea, Vomiting and Diarrhea
: Reports No Symptoms
Musculoskeletal: Reports No Symptoms
Skin: Reports No Symptoms
Neurological: Reports Dizzy, Weakness and Other (vertigo)
Vital Signs
Temp Pulse Resp BP Pulse Ox
98.2 F 75 18 112/58 97
11/20/23 11:30 11/20/23 11:30 11/20/23 11:30 11/20/23 11:30 11/20/23 11:30
Physical Exam
Exam
General: Well Developed, Well Nourished and No Apparent Distress
HEENT: Normocephalic, Anicteric and Atraumatic
Respiratory: Clear
Cardiac: S1/S2 and Regular Rhythm
Breast: Deferred by me
GI: Soft, Non Tender, Non Distended and Normal Bowel Sounds
Rectal: Deferred by Provider
Musculoskeletal: No Edema
Skin: Warm and Dry
Neuro: Awake, Alert and Oriented
Psych: Calm
Results
WBC 9.4 10^3/uL (4.8-10.8) 11/19/23 10:01
Hgb 13.8 g/dL (12.0-16.0) 11/19/23 10:01
Hct 39.5 % (37.0-47.0) 11/19/23 10:01
MCV 88.8 fL (81.0-99.0) 11/19/23 10:01
Plt Count 224 10^3/uL (130-400) 11/19/23 10:01
Absolute Neuts (auto) 7.5 10^3/uL (1.4-6.5) H 11/19/23 10:01
Sodium 135 mmol/L (135-145) 11/20/23 04:46
Potassium 4.4 mmol/L (3.5-5.1) 11/20/23 04:46
Chloride 102 mmol/L (98-107) 11/20/23 04:46
Carbon Dioxide 28 mmol/L (22-30) 11/20/23 04:46
BUN 12 mg/dl (7-17) 11/20/23 04:46
Creatinine 0.7 mg/dL (0.6-1.0) 11/20/23 04:46
Calcium 9.5 mg/dl (8.4-10.2) 11/20/23 04:46
Total Bilirubin 0.8 mg/dl (0.2-1.3) 11/19/23 10:01
AST 20 U/L (14-36) 11/19/23 10:01
ALT 17 U/L (0-35) 11/19/23 10:01
Alkaline Phosphatase 58 U/L (38-126) 11/19/23 10:01
Diagnostic Image Results:
11/19/[address]: no acute intracranial abnormalities
11/19/2023 head and neck CTA: No CTA evidence for high-grade stenosis or occlusion of the arterial vasculature of the head or neck
11/19/2023 MRI of the brain: No evidence for acute abnormality. Mild to moderate diffuse atrophy. Minimal periventricular leukomalacia.
Prior GI Procedures:
EGD: 07/05/2017 Dr. Tavarez: Normal ampulla, duodenal bulb and second portion of the duodenum. Biopsied. Gastric erosion without bleeding. Biopsied. Erythematous mucosa in the antrum. Biopsied. Erythematous mucosa in the gastric fundus and
gastric body. Biopsied. Normal cardia. Abnormal esophageal motility. LA Grade A reflux esophagitis. A single plaque in the lower third of the esophagus. Biopsied. Moderate Schatzki ring. Dilated. Biopsies were taken with a cold forceps for histology
in the middle third of the esophagus and in the lower third of the esophagus. Biopsies showing chronic gastritis, inflammation of the esophagus, negative for H. pylori, celiac, EOE, or Castro's esophagus.
Colonoscopy: 11/30/2022 Dr. Vera: �One 2 mm adenomatous polyp in the transverse colon, removed with� a cold biopsy forceps. Resected and retrieved. One 3 mm hyperplastic polyp in the rectum, removed with a cold biopsy forceps. Resected and
retrieved. The examination was otherwise normal.
Assessment / Plan
-
The patient is a pleasant 73-year-old female with a past medical history significant for abnormal Pap smears, osteopenia, history of Schatzki ring with dilation in 2017, esophagitis, who presented to the emergency room on 11/18 with complaints of
dizziness and double vision. We are being asked to evaluate for persistent diarrhea with dark stool and dysphagia. She appears to have somewhat chronic symptoms after having a viral illness in September with ongoing diarrhea, nausea, and vomiting,
now somewhat intermittent. Her reports prior evaluation in the ER near their other home with inconclusive workup. These records are not available for me to review at this time. Her labs on admission were essentially unrevealing aside from
an elevated CRP. She is not anemic and does not have any significant electrolyte disturbances. Brain imaging ruled out acute stroke although neurology suspects there may be a small ischemic event with her neurological symptoms. She does also
report somewhat regular dysphagia with history of Schatzki ring with dilation in 2017. No symptoms to suggest food impaction.
Problem list:
-Acute on chronic dark colored diarrhea
-dysphagia, acute/chronic
-nausea, vomiting, vertigo symptoms
-History of Schatzki ring with dilation in 2017
-History of esophagitis, LA grade A
-Weight loss
-blurred/double vision, ambulatory dysfunction, r/o CVA (brain imaging unrevealing for acute stroke, being followed by neurology)
-Elevated CRP, normal ESR
Other pertinent medical history:
-History of abnormal Pap smear
-Osteopenia
Recommendations:
-Etiology of diarrhea unclear. 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 She did have a colonoscopy last year but no random biopsies were taken
-Will check an x-ray of the abdomen to evaluate for stool burden and obstructive process with her associated nausea and vomiting although less likely an acute obstruction as she appears comfortable and has had no further vomiting. Her nausea and
vomiting may also be secondary to neurological process with vertigo symptoms as well. She is not anemic to suggest bleeding.
-Will await records from prior ER evaluations which the patient's daughter is going to bring. Consider CT imaging with weight loss but will see if this was done previously.
-In regards to her dysphagia, this may be secondary to recurrent narrowing from Schatzki ring versus esophagitis versus stricture versus other.
-To consider upper GI series for further evaluation as she needs to be on Plavix for 21 days per neurology. Currently with no urgent need for endoscopy
-Will place on twice daily Protonix 40 mg (cannot have omeprazole due to Plavix per neurology)
-Will send stool studies to rule out infection with Giardia/crypto, norovirus, and await stool culture. Will also add fecal calprotectin and pancreatic elastase.
-Lactose restriction in diet
-Further evaluation pending above. Will review case with Dr. Lazo.
-Will arrange for her to follow-up in our office outpatient as she has had difficulty getting into a GI office as her symptoms have been ongoing for several months.
-Will follow
-
-
Thank you for consultation and allowing me to participate in the patient's care. Please call the religious education director GI physician during the after hours with any questions or concerns.
[2023-11-20 15:30] VITALS: BP 98/57
--- NOTE | 2023-11-20 16:30 | CM ---
manager embalmer funeral director reviewed patient's chart and met with patient and patient lives in a 2 story home, patient is independent with adl's and ambulation, no dme, patient drives, patient is very active works out. Patient has a prescription plan and patient
uses [facility] pharmacy.
PCP: Dr Jarquin
Plan; Home with spouse no needs when stable.
[2023-11-20] MEDS: LOVENOX 40 MG SC (17:27)
[2023-11-20] MEDS: LIPITOR 40 MG PO (17:27)
[2023-11-20] MEDS: BenGay-Like 1 APPLIC TOPICAL ×2 (17:28→22:50)
[2023-11-20 18:10] LABS: Lyme Antibody Screen, EIA Negative (Negative)
[2023-11-20 19:38] VITALS: BP 117/63
[2023-11-20] MEDS: PROTONIX 40 MG PO (20:10)
[2023-11-20 23:27] VITALS: BP 117/75
[2023-11-21 03:45] VITALS: BP 130/72
[2023-11-21] MEDS: TYLENOL 650 MG PO (04:17)
[2023-11-21 07:32] VITALS: BP 121/73
[2023-11-21] MEDS: THIAMINE INJECTION 255 MG IV ×2 (07:35→15:56)
[2023-11-21] MEDS: PROTONIX 40 MG PO (07:35)
[2023-11-21] MEDS: PLAVIX 75 MG PO (07:36)
[2023-11-21] MEDS: BenGay-Like 1 APPLIC TOPICAL ×4 (07:36→21:41)
[2023-11-21] MEDS: ASPIR LOW (ENTERIC COATED) 81 MG PO (07:36)
--- NOTE | 2023-11-21 07:54 | W.PN.HOSP.TC ---
Today's Communication/Plan
-
pain headache control
cont ST/PT/OT
ASA plavix statin
Vit B1 remains pending, likely will be pending for days (send out)
Discharge planning Home w Home Services vs Outpt PT/OT
Assessment / Plan
Assessment / Plan
Physical Exam
General: Well Developed, Well Nourished and No Apparent Distress
HEENT: NormoCephalic, Anicteric, Moist mucous membranes, Atraumatic, PERRLA. Horizontal Nystagmus elicited on right lateral gazeLimited motion neck d/t pains/stiffness
Respiratory: Clear
Cardiac: S1/S2 and Regular Rhythm
GI: Soft, Non Tender, Non Distended and Normal Bowel Sounds
Musculoskeletal: No Clubbing, No Cyanosis and No Edema
Neuro: AO x 3
Psych: Calm
73 y.o female with diplopia on right lateral gaze and dizziness.� No other focal deficit.� Negative CT head and CTA head/neck.� Exam c/w ALMAZ affecting left eye tracking suggest of left pontine lesion.� Either ischemic given acute onset, possibly
inflammatory (though less likely with acuity), possible Thiamine deficiency
PLAN:
Double vision - ALMAZ (internuclear ophthalmoplegia)
Hyperlipidemia
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
- MRI appreciated no acute abn's
- Neuro eval appreciated likely small ischemic stroke nikolas causing ALMAZ
- patient started on ASA Plavix for 21 days
- also started on thiamine
- checking b12, tsh wnl
- a1c 5.9 prediabetes
- lipid panel appreciated hyperlipidemia, started on statin
- neurochecks
- PT/OT eval appreciated outpt PT
Headache Neck Stiffness pain possibly d/t ALMAZ vs Scoliosis Degenerative Disc Dz as noted on MRI C-spine
cont supportive care
Tylenol increased to scheduled 1000 mg TID
Toradol ordered once x2 for severe pain not mediated by Tylenol, ordered sparingly given potential for interaction aspirin plavix lovenox
Persistent GI symptoms intermittent diarrhea dark Stools since September
no significant Anemia
Dysphagia
- diarrhea appears resolved at this time
-Speech Eval VSE exam appreciated no significant aspiration, possible slow emptying PES, otherwise appropriate for reg solids thin liquids with associate swallowing strategies/recommendations
-GI eval appreciated follow stool studies (no significant growth noted so far), eventual outpt EGD w/ dilation (after Plavix treatment regimen completed)
DVT PPX Lovenox sq
Full Code
Discussed with patient and her daughter Sonia
I spent a total of 58 minutes with the patient or on the floor. More than 50% of this time involved counseling and coordination of care.
Anticipated Discharge: Within 24 hours
Subjective/Interval History
-
Date of Service: November 21, 2023
Seen and examined at bedside in no acute distress sitting up comfortably in bed. Continues to report intermittent neck pain headache. Diplopia dizziness especially on head turning lateral gaze persists.
Objective Data
-
Labs:
Laboratory Results
11/21/23
06:40
WBC Pending
Hgb Pending
Hct Pending
Plt Count Pending
Sodium Pending
Potassium Pending
Chloride Pending
Carbon Dioxide Pending
BUN Pending
Creatinine Pending
Glucose Pending
Calcium Pending
Vital Signs:
Vital Signs
Temp Pulse Resp BP Pulse Ox
98.7 F 74 17 121/73 97
11/21/23 07:32 11/21/23 07:32 11/21/23 07:32 11/21/23 07:32 11/21/23 07:32
I&O
11/20/23 11/21/23 11/22/23
06:59 06:59 06:59
Intake Total 120 / 120 950 / 950
Balance 120 / 120 950 / 950
[2023-11-21 07:55] LABS: Hematocrit 35.6 % (37.0-47.0); Mean Corp Hgb Conc. 33.7 g/dL (33.0-37.0); Mean Corpuscular Hgb 30.7 pg (27.0-31.0); Mean Platelet Volume 9.7 fL (7.4-10.4); Platelet Count 205 10^3/uL (130-400); Red Blood Cell Count 3.91 10^6/uL (4.20-5.40); Red Cell Dist. Width 13.2 % (11.5-14.5); White Blood Cell Count 6.2 10^3/uL (4.8-10.8)
[2023-11-21 08:10] LABS: Blood Urea Nitrogen 17 mg/dl (7-17); Calcium 9.2 mg/dl (8.4-10.2); Carbon Dioxide 25 mmol/L (22-30); Chloride 105 mmol/L (98-107); Estimated Creatinine Clearance 65 ml/min; Glucose 111 mg/dl (70-99); Phosphorus 4.2 mg/dl (2.5-4.5); Potassium 4.1 mmol/L (3.5-5.1); Sodium 137 mmol/L (135-145); eGFR > 60.00
--- NOTE | 2023-11-21 10:12 | W.PN.GI.CBS2 ---
Addendum entered and electronically signed by Arianne Beltran MD 11/21/23 12:10:
I saw and examined the patient.
The HAND ALTERATIONS TAILOR's note was reviewed and I agree with the note.
Comment: 1. She had a bowel movement yesterday not loose, feels better. No nausea vomiting tolerating diet. Noted results of VSE and speech evaluation no aspiration noted was recommended continue regular solids with thin liquids. I encouraged her
to eat slowly and chew her food well, she does have a prior history of Schatzki's ring possible that her intermittent episodes of dysphagia to some solids(bread and dry meats) may be related to this. will schedule her for eventual endoscopy with
dilatation as outpatient when able to hold Plavix for 5 to 7 days, per neurology recommendation to stay on DAPT for 21 days and then aspirin thereafter. Continue PPI for GERD given that she is on Plavix will continue pantoprazole avoid omeprazole
2. Small ischemic stroke per neurology workup per neuro
3. History of diarrhea with nausea vomiting unclear if she had viral gastroenteritis followed by post infectious IBS and probable ileus. Symptoms have improved okay to use Imodium as needed, stool cultures are negative, fecal chase and pancreatic
elastase pending. will also get celiac serologies.
Will sign off and will be available as needed, sent TT to front office coordinator to schedule her in 4 to 6 weeks
Original Note:
Today's Communication / Plan
-
VSE today. Diet as per speech. Consider upper GI series. Follow stool studies. PPI twice daily.
Assessment / Plan
-
The patient is a pleasant 73-year-old female with a past medical history significant for abnormal Pap smears, osteopenia, history of Schatzki ring with dilation in 2017, esophagitis, who presented to the emergency room on 11/18 with complaints of
dizziness and double vision. We are being asked to evaluate for persistent diarrhea with dark stool and dysphagia. She appears to have somewhat chronic symptoms after having a viral illness in September with ongoing diarrhea, nausea, and vomiting,
now somewhat intermittent. Her reports prior evaluation in the ER near their other home with inconclusive workup. These records are not available for me to review at this time. Her labs on admission were essentially unrevealing aside from
an elevated CRP. She is not anemic and does not have any significant electrolyte disturbances. Brain imaging ruled out acute stroke although neurology suspects there may be a small ischemic event with her neurological symptoms. She does also
report somewhat regular dysphagia with history of Schatzki ring with dilation in 2017. No symptoms to suggest food impaction.
Problem list:
-Acute on chronic dark colored diarrhea, improved
-dysphagia, acute/chronic
-nausea, vomiting, vertigo symptoms
-History of Schatzki ring with dilation in 2017
-History of esophagitis, LA grade A
-Weight loss
-blurred/double vision, ambulatory dysfunction, r/o CVA (brain imaging unrevealing for acute stroke, being followed by neurology)
-Elevated CRP, normal ESR
Other pertinent medical history:
-History of abnormal Pap smear
-Osteopenia
Recommendations:
-Etiology of diarrhea unclear. 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 She did have a colonoscopy last year but no random biopsies were taken
---X-ray of the abdomen did not show any stool burden or obstructive process. Her diarrhea has improved and had a formed bowel movement yesterday.
-Follow fecal calprotectin and pancreatic elastase.
-Neuro evaluation ongoing, pending MRI Cspine and various labs pending
-I did review her records from [facility] (report only). She did undergo CT imaging on 10/16/2023 with IV contrast which showed hepatic steatosis, a small paraesophageal hernia with evidence of reflux and a punctate density within the
intrapancreatic CBD with normal-appearing pancreas and otherwise no bowel inflammation. She did also undergo MRCP which showed no signs of choledocholithiasis.
-In regards to her dysphagia, this may be secondary to recurrent narrowing from Schatzki ring versus esophagitis versus stricture versus other.
-Pending VSE today, to consider upper GI series while inpatient pending video swallow study
-Diet as per speech
-Per neurology she needs to be on Plavix for 21 days. Will plan for eventual EGD with possible dilation outpatient when able to hold Plavix
-Will arrange for her to follow-up in our office outpatient
-Will follow
Subjective
Subjective
Date of Service: November 21, 2023
The patient was seen and examined at the bedside. She denies any acute complaints. She reports she had a formed bowel movement yesterday with no further diarrhea. She notes she continues with some difficulty swallowing and feels that food does go
down slow. She was seen by speech and is pending a VSE today. She denies any further nausea or vomiting. Stool culture and Giardia crypto are negative. C. difficile test was canceled due to formed stool.
Objective
Data Reviewed
Laboratory Data:
Laboratory Results
11/21/23 06:40
11/21/23 06:40
Laboratory Results
Phosphorus 4.2 mg/dl (2.5-4.5) 11/21/23 06:40
Magnesium 2.0 mg/dl (1.6-2.3) 11/21/23 06:40
Total Bilirubin 0.8 mg/dl (0.2-1.3) 11/19/23 10:01
AST 20 U/L (14-36) 11/19/23 10:01
ALT 17 U/L (0-35) 11/19/23 10:01
Alkaline Phosphatase 58 U/L (38-126) 11/19/23 10:01
Vital Signs and I&O:
Vital Signs
Temp Pulse Resp BP Pulse Ox
98.7 F 74 17 121/73 97
11/21/23 07:32 11/21/23 07:32 11/21/23 07:32 11/21/23 07:32 11/21/23 07:32
I&O
11/20/23 11/21/23 11/22/23
06:59 06:59 06:59
Intake Total 120 / 120 950 / 950
Balance 120 / 120 950 / 950
Physical Exam
Physical Exam
HEENT: Anicteric
Cardiology: S1 and S2 (Regular rate/rhythm)
Pulmonary: Clear
GI: Soft, Non Distended, Non Tender and Normal Bowel Sounds
--- NOTE | 2023-11-21 11:35 | PTOTSP ---
Video Swallow Examination
No laryngeal penetration or aspiration across trials/consistencies. No epiglottic inversion resulted in mild vallecular stasis that was more pronounced with thin liquids and mostly cleared with dry swallow. Mildly reduced distension of PES did not
significantly impact bolus flow. Observation of esophagus in lateral view did not reveal gross retention but rather at least mild amount of contrast with slight redirection below PES suggesting contents slow to empty.
Recommend
1. Continue Regular solids and Thin Liquids
2. Dry swallows
3. Intersperse sip of liquid after 2-3 solids/semisolids
4. Eat slowly and chew food thoroughly.
5. Meds whole in applesauce.
6. Reflux precautions
[2023-11-21 11:37] VITALS: BP 124/67
--- NOTE | 2023-11-21 13:20 | CM ---
MEt with patient, and dgtr. Gave list of PCP and phone number to call to get help to set up patient portal.
[2023-11-21 15:03] VITALS: BP 130/77
[2023-11-21 15:40] LABS: HIV Combo Negative (Negative)
--- NOTE | 2023-11-21 15:43 | W.PN.NEURO.1 ---
Today's Communication / Plan
-
-Continue aspirin 81mg daily, indefinitely. Initiate Plavix 75mg daily for 21 days of DAPT. After 21, discontinue Plavix and continue aspirin 81mg daily only, indefinitely.
Neuro Assessment/Plan
Assessment
73-year-old right-handed female with no significant chronic medical conditions who presented to on 11/19/23 with report of previous abdominal illness in October with poor appetite following presents with new dizziness, diplopia, gait problems and
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
-CT head 11/19/23: No acute intracranial abnormality.
-CTA head/neck 11/19/23: No CTA evidence for high-grade stenosis or occlusion of the arterial vasculature of the head or neck.
-MRI brain 11/19/23: No evidence for acute abnormality. Mild to moderate diffuse atrophy. Minimal periventricular leukomalacia.
I. �Likely a non-visualized ischemic stroke of the nikolas.
II. Thiamine/B1 deficiency due to the recent GI issues and poor appetite less likely given lack of improvement with IV thiamine replacement.
III. No large vessel occlusions or significant stenosis of vertebral or basilar arteries on the CTA of the head and neck and no evidence of dissection.
IV. Recent GI illness may have been biliary cholic versus viral gastroenteritis?
Plan
-Continue aspirin 81mg daily, indefinitely. Initiate Plavix 75mg daily for 21 days of DAPT. After 21, discontinue Plavix and continue aspirin 81mg daily only, indefinitely.
-Goal normotension.
-Monitor on cardiac telemetry and check TTE.
-Check Vitamin B1 and other metabolic abnormalities
-LDL goal <70. LDL is 135. Initiate atorvastatin 40mg daily.
-NIHSS and neurological checks per unit guidelines.
-PT/OT/ST evaluations
Patient needs follow-up as an outpatient with Neurology
Subjective/Objective
Subjective Data
Date of Service: November 21, 2023
Patient reports no significant change in visual difficulties
Objective Data
Vital Signs
Temp Pulse Resp BP Pulse Ox
36.8 C 78 16 130/77 98
11/21/23 15:03 11/21/23 15:03 11/21/23 15:03 11/21/23 15:03 11/21/23 15:03
Lab Results
11/21/23 06:40
11/21/23 06:40
Sodium 137 mmol/L (135-145) 11/21/23 06:40
Potassium 4.1 mmol/L (3.5-5.1) 11/21/23 06:40
BUN 17 mg/dl (7-17) 11/21/23 06:40
Glucose 111 mg/dl (70-99) H 11/21/23 06:40
Calcium 9.2 mg/dl (8.4-10.2) 11/21/23 06:40
Phosphorus 4.2 mg/dl (2.5-4.5) 11/21/23 06:40
LDL Cholesterol, Calc 135 mg/dl 11/20/23 04:46
Vitamin B12 917 pg/ml (239-931) 11/19/23 10:01
Patient Allergies
latex Allergy (Verified 05/05/21 08:21)
Rash
mold Allergy (Verified 05/05/21 08:21)
RUNNY NOSE/STUFFY NOSE
Enviornmental Allergy (Uncoded 05/05/21 08:21)
runny nose
INSECT BITES Allergy (Uncoded 05/05/21 08:21)
SWELLING, AND ITCHINESS
POISON ANA Allergy (Uncoded 05/05/21 08:21)
RASH AND BLISTERS
SPICY FOOD Allergy (Uncoded 05/05/21 08:21)
DIARRHEA
Review of Systems
-
History Source: Patient
All other systems: Reviewed and negative
Physical Exam
-
General: Well Developed, Well Nourished and No Apparent Distress
Eyes: No Ptosis and PERRLA
HEENT: Normocephalic and Atraumatic
Neck: Full Range of Motion
GI: Non-distended
Extremities: No Clubbing, No Cyanosis and No Edema
Psych: Unremarkable
Extended Neurological Exam
Mood & Affect: Mood Unremarkable and Affect Unremarkable
Attention Span & Concentration: Awake, Alert and Interactive
Memory: Unremarkable (AAOx3) and Able to Recall
Tremor: Hand Tremor Absent and Head Tremor Absent
Involuntary Movement: None
Speech: Quality Unremarkable, Quantity Unremarkable and Rate of Production Unremarkable
Cranial Nerves III, IV, : Extraocular Movement: Nystagmus with Extreme Gaze to Left, Nystagmus with Extreme Gaze to Right and Other (Left eye with restricted movement to the right.)
Cranial Nerve V: Facial Sensation: Intact to Light Touch
Cranial Nerve VII: Facial Symmetry: Normal Facial Symmetry
Cranial Nerve VIII: Hearing: Unremarkable Hearing to Normal Conversational Volume
Muscle Strength, Overall: Spontaneously Moves (All extremities)
Muscle Bulk & Tone: Bulk Unremarkable and Tone Unremarkable
Coordination: Reaches for Objects without Difficulty
Data Reviewed
-
MRI Head: Report Reviewed
Reviewed with: Physician, Nurse Practioner and Patient
Old Records: Summarized
Past History
Past History
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
ED Past Surgical History: Gynecological (Tubal ligation)
Family History
Family History: Other (Reviewed and noncontributory)
Medications
-
Medications:
Generic Name Dose Route Start Last Admin
Trade Name Freq PRN Reason Stop Dose Admin
Acetaminophen 1,000 mg 11/21/23 16:00
Acetaminophen 500 Mg Tablet PO 12/19/23 15:59
TID HAIDER
Aspirin 81 mg 11/20/23 08:00 11/21/23 07:36
Aspirin 81 Mg (Enteric Coated) Tablet PO 12/18/23 07:59 81 mg
DAILY HAIDER Administration
Atorvastatin Calcium 40 mg 11/20/23 18:00 11/20/23 17:27
Atorvastatin (Lipitor) 40 Mg Tablet PO 12/18/23 17:59 40 mg
QPM HAIDER Administration
Clopidogrel Bisulfate 75 mg 11/21/23 08:00 11/21/23 07:36
Clopidogrel 75 Mg Tablet PO 12/11/23 08:01 75 mg
DAILY HAIDER Administration
Enoxaparin Sodium 40 mg 11/19/23 18:00 11/20/23 17:27
Enoxaparin Sodium 40 Mg/0.4 Ml Syringe SC 12/17/23 17:59 40 mg
QPM HAIDER Administration
Thiamine HCl 500 mg/ Sodium 255 mls @ 255 mls/hr 11/19/23 13:00 11/21/23 07:35
Chloride IV 12/17/23 12:59 255 mls
Q8 HAIDER Administration
Menthol/Methyl Salicylate 1 applic 11/20/23 18:00 11/21/23 13:58
Bengay-Like Cream TOPICAL 12/18/23 17:59 1 applic
QID HAIDER Administration
Pantoprazole Sodium 40 mg 11/22/23 08:00
Pantoprazole 20 Mg Delayed Release Tablet PO 12/20/23 07:59
DAILY HAIDER
Sodium Chloride 0 flush 11/21/23 13:00
Sodium Chloride 0.9% (Flush) Syringe IV 12/19/23 12:59
PER PROTOCOL HAIDER
[2023-11-21] MEDS: TYLENOL 1000 MG PO ×2 (15:56→21:41)
[2023-11-21] MEDS: LOVENOX 40 MG SC (17:23)
[2023-11-21] MEDS: LIPITOR 40 MG PO (17:23)
[2023-11-21 17:41] LABS: Syphilis/T. pallidum Ab Reflex Negative (Negative)
[2023-11-21] MEDS: TORADOL 15 MG IV (18:38)
[2023-11-21 19:00] VITALS: BP 116/78
[2023-11-21 23:00] VITALS: BP 125/71
[2023-11-22 03:00] VITALS: BP 114/71
[2023-11-22 07:06] LABS: Hematocrit 35.5 % (37.0-47.0); Hemoglobin 12.2 g/dL (12.0-16.0); Mean Corp Hgb Conc. 34.4 g/dL (33.0-37.0); Mean Corpuscular Hgb 31.1 pg (27.0-31.0); Mean Corpuscular Volume 90.6 fL (81.0-99.0); Mean Platelet Volume 9.4 fL (7.4-10.4); Platelet Count 218 10^3/uL (130-400); Red Blood Cell Count 3.92 10^6/uL (4.20-5.40); Red Cell Dist. Width 13.1 % (11.5-14.5); White Blood Cell Count 5.6 10^3/uL (4.8-10.8)
[2023-11-22 07:10] VITALS: BP 127/77
[2023-11-22 07:18] LABS: Blood Urea Nitrogen 18 mg/dl (7-17); Calcium 9.1 mg/dl (8.4-10.2); Carbon Dioxide 25 mmol/L (22-30); Chloride 108 mmol/L (98-107); Estimated Creatinine Clearance 65 ml/min; Glucose 96 mg/dl (70-99); Magnesium 2.1 mg/dl (1.6-2.3); Phosphorus 4.3 mg/dl (2.5-4.5); Potassium 4.2 mmol/L (3.5-5.1); Sodium 137 mmol/L (135-145); eGFR > 60.00
--- NOTE | 2023-11-22 08:08 | W.PN.HOSP.TC ---
Today's Communication/Plan
-
discharge
Assessment / Plan
Assessment / Plan
Physical Exam
General: Well Developed, Well Nourished and No Apparent Distress
HEENT: NormoCephalic, Anicteric, Moist mucous membranes, Atraumatic, PERRLA. Horizontal Nystagmus elicited on right lateral gazeLimited motion neck d/t pains/stiffness
Respiratory: Clear
Cardiac: S1/S2 and Regular Rhythm
GI: Soft, Non Tender, Non Distended and Normal Bowel Sounds
Musculoskeletal: No Clubbing, No Cyanosis and No Edema
Neuro: AO x 3
Psych: Calm
73 y.o female with diplopia on right lateral gaze and dizziness.� No other focal deficit.� Negative CT head and CTA head/neck.� Exam c/w ALMAZ affecting left eye tracking suggest of left pontine lesion.� Either ischemic given acute onset, possibly
inflammatory (though less likely with acuity), possible Thiamine deficiency
PLAN:
Double vision - ALMAZ (internuclear ophthalmoplegia)
Hyperlipidemia
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
- MRI appreciated no acute abn's
- Neuro eval appreciated likely small ischemic stroke nikolas causing ALMAZ
- patient started on ASA Plavix for 21 days
- started on thiamine
- b12, tsh wnl
- a1c 5.9 prediabetes
- lipid panel appreciated hyperlipidemia, started on statin
- PT/OT eval appreciated outpt PT/OT (patient family however prefer home services at this time)
Headache Neck Stiffness pain possibly d/t ALMAZ vs Scoliosis Degenerative Disc Dz as noted on MRI C-spine
cont supportive care
Tylenol increased to scheduled 1000 mg TID
Toradol ordered once x2 for severe pain not mediated by Tylenol, ordered sparingly given potential for interaction aspirin plavix lovenox
-symptom since improved/resolved neck pain/headache respectively
Persistent GI symptoms intermittent diarrhea dark Stools since September
no significant Anemia
Dysphagia
- diarrhea appears resolved at this time
-Speech Eval VSE exam appreciated no significant aspiration, possible slow emptying PES, otherwise appropriate for reg solids thin liquids with associate swallowing strategies/recommendations
-GI eval appreciated follow stool studies (no significant growth noted so far), eventual outpt EGD w/ dilation (after Plavix treatment regimen completed)
DVT PPX Lovenox sq
Full Code
Medically stable for discharge home with home services and outpatient follow up recommendations.
Discussed with patient, her daughter Sonia, and Gorge
Total Time Preparing Discharge __47 minutes including examination of the patient, summary of the hospital stay, instructions for continuing care to all relevant caregivers; and preparation of discharge records, prescriptions, and referral
forms if necessary.
Anticipated Discharge: Today
Subjective/Interval History
-
Date of Service: November 22, 2023
Seen and examined at bedside in no acute distress sitting up comfortably in bed. Reports improvement in neck pain and currently resolution of headache. Denies any new acute issues at this time. eager to go home. Family daughter Sonia and
Gorge present during evaluation.
Objective Data
-
Labs:
Laboratory Results
11/22/23
06:33
WBC 5.6
Hgb 12.2
Hct 35.5 L
Plt Count 218
Sodium 137
Potassium 4.2
Chloride 108 H
Carbon Dioxide 25
BUN 18 H
Creatinine 0.7
Glucose 96
Calcium 9.1
Vital Signs:
Vital Signs
Temp Pulse Resp BP Pulse Ox
97.8 F 78 12 114/71 96
11/22/23 03:00 11/22/23 03:00 11/22/23 03:00 11/22/23 03:00 11/22/23 03:00
I&O
11/21/23 11/22/23 11/23/23
06:59 06:59 06:59
Intake Total 950 / 950 735 / 735
Balance 950 / 950 735 / 735
[2023-11-22] MEDS: BenGay-Like 1 APPLIC TOPICAL ×2 (09:04→15:21)
[2023-11-22] MEDS: ASPIR LOW (ENTERIC COATED) 81 MG PO (09:05)
[2023-11-22] MEDS: TYLENOL 1000 MG PO ×2 (09:05→15:21)
[2023-11-22] MEDS: VITAMIN B1 100 MG PO (09:05)
[2023-11-22] MEDS: PLAVIX 75 MG PO (09:05)
[2023-11-22] MEDS: PROTONIX 40 MG PO (09:05)
[2023-11-22 11:12] VITALS: BP 112/84
--- NOTE | 2023-11-22 13:46 | CM ---
Chart reviewed and patient and family are agreeable to visiting nurses, referral sent to [facility].
Plan; Home today with [facility].
--- NOTE | 2023-11-22 14:50 | W.DCSUMMARY ---
Discharge Summary
Discharge Data
Date of Admission: 11/19/23
Date of Discharge: 11/22/23
-
Pending Results: Yes
Additional Pending Results:
Immunology studies, Vitamin B1 level, Immunoglobulin A level
Hospital Course
73F with diplopia on right lateral gaze and dizziness.� No other focal deficit.� Negative CT head and CTA head/neck.� Exam c/w ALMAZ affecting left eye tracking suggestive of left pontine lesion.� Either ischemic given acute onset, possibly
inflammatory (though less likely with acuity), possible Thiamine deficiency. MRI appreciated no acute abn's, however, Neuro eval appreciated likely small ischemic stroke nikolas causing ALMAZ (internuclear ophthalmoplegia), double vision. Patient
started on dual antiplatelet ASA Plavix for 21 days- also started on thiamine for possible deficiency though less likely given lack of improvement with supplementation. B12, TSH wnl. A1c 5.9 prediabetes. Lipid panel appreciated hyperlipidemia,
started on statin. PT/OT eval appreciated outpt services recommended (patient family however preferred home services at this time). Hospital course was notable for Headache Neck Stiffness pain possibly d/t ALMAZ vs Scoliosis Degenerative Disc Dz as
noted on MRI C-spine. Supportive care provided, Tylenol increased to scheduled 1000 mg TID. Toradol ordered once x2 for severe pain not mediated by Tylenol, ordered sparingly given potential for interaction aspirin plavix lovenox. Symptoms since
improved/resolved neck pain/headache respectively. Also noted persistent GI symptoms intermittent diarrhea dark Stools since September. No significant Anemia. Diarrhea appeared resolved during this hospitalization. Some Dysphagia was noted likely
secondary to Schatzki's ring (patient has history requiring EGD dilation). Speech Eval VSE exam appreciated no significant aspiration, possible slow emptying PES, otherwise appropriate for reg solids thin liquids with associate swallowing
strategies/recommendations. GI evaluated and recommended eventual outpt EGD w/ dilation (after Plavix treatment regimen completed). Medically stable, patient was discharged home with home services and outpatient follow up recommendations.
Discharge Plan
-
Patient Disposition: Home with Home Care
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
scoliosis contributing, Prediabetes, Hyperlipidemia, Dysphagia possibly due to Schatzki's ring
Condition: Good
Diet: Low Cholesterol
Activity: As tolerated
Driving Restrictions: Not until seen by your Dr
Bathing Restrictions: None
Blood Work: Please repeat Lipid Panel with primary care provider in 1 month of discharge to follow up hyperlipidemia
Other Services: PT and OT
Activity Restrictions/Additional Instructions:
Please follow up with primary care provider in 1 week of discharge, neurology in 2-4 weeks of discharge, and GI in 4-6 weeks of discharge.
For stroke you've been prescribed Aspirin and Plavix for total of 21 days. After completion of 21 days, discontinue Plavix and continue with aspirin indefinitely.
Protonix has been prescribed in place of your home medication omeprazole due to concern interaction with Plavix.
Thiamine supplementation has been prescribed for possible deficiency. Thiamine level remains pending. If thiamine level returns normal/non-deficient, ok to discontinue Thiamine supplementation.
Atorvastatin has been started for hyperlipidemia and increased stroke risk reduction.
Recommended to continue with Tylenol 1000 mg three times a day to help with Headache and neck pain likely associated with ALMAZ. After 5 days of scheduled tylenol, ok to resume prior home dosing as needed every 6 Hour for pain.
Please take medications as prescribed/recommended and follow up with primary care provider and/or other healthcare provider involved in your care for refills and/or further adjustment to your medication regimen as necessary.
Instructions: Stroke (DC), Chronic Neck Pain (DC), High Cholesterol (DC)
Referrals:
Bennett West MD [Active] - in two to four weeks
Oumar Jarquin MD [Family Provider] - in one week
Arianne Beltran MD [Active] - in four to six weeks
Prescriptions:
New
thiamine HCl (vitamin B1) 100 mg Tablet
100 mg PO DAILY 30 Days Qty: 30 0RF
atorvastatin 40 mg Tablet
40 mg PO QPM 30 Days Qty: 30 0RF
clopidogrel 75 mg Tablet
75 mg PO DAILY 19 Days Qty: 19 0RF
aspirin 81 mg Tablet,Delayed Release (Dr/Ec)
81 mg PO DAILY 90 Days Qty: 90 0RF
pantoprazole [Protonix] 40 mg tablet,delayed release (DR/EC)
40 mg PO DAILY 30 Days Qty: 30 0RF
Continued
Visbiome 112.5 billion cell Capsule
1 cap PO DAILY
Changed
acetaminophen [Tylenol Extra Strength] 500 mg Tablet
1,000 mg PO TID 5 Days Qty: 30 0RF
Rx Instructions:
after 5 days, resume prior as needed every 6 hours for pain dosing.
Discontinued
omeprazole 20 mg Capsule,Delayed Release(Dr/Ec)
20 mg PO DAILY
Discharge Orders:
Discharge Patient (As Directed); Ordered 11/22/23
Ordered By: Soy Mckeon
Discharge Date and Time
Discharge Date/Time: 11/22/23 16:35
[2023-11-22 14:59] LABS: tTG IgA Antibody 5.1 EU/ml (0-19)
--- NOTE | 2023-11-22 15:24 | VNURNOTE ---
Home Health Liaison met with patient and spouse Gorge at 1430 to discuss [facility] nurse/therapy, visits, schedule and homebound status. Patient is agreeable and understands that visits at home will be 2-3 x per week to assess and teach medical management.
[facility] brochure provided with contact information. Patient is aware that [facility] will contact them for start of care in 1-2 days after discharge from .
[facility] referral completed in [facility] Port.
[2023-11-22 15:38] VITALS: BP 115/68
[2023-11-23 00:10] LABS: IgA 231 mg/dl (70-400)
[2023-11-23 07:27] LABS: ANA, IgG Reflex to HEp-2 None Detected (None Detected)
[2023-11-23 20:58] LABS: Myeloperoxidase Antibody 0 AU/mL (0-19); Serine Protease-3, IgG 1 AU/mL (0-19)
[2023-11-23 22:40] LABS: Calprotectin, Fecal 64 ug/g (<=49); Pancreatic Elastase, Fecal >800 ug/g (>=100)
[2023-11-24 11:38] LABS: Vitamin B1, Whole Blood 470 nmol/L (70-180)
[2023-11-25 00:12] LABS: Endomysial IgA Antibody Titer <1:10 (<1:10)
== END 2023-11-22 16:35 | disposition home health service (06) | DRG 65 ==
LOC: 4 WEST ACU 13:55
PROVIDERS: Internal Medicine Gastroenterology; Nurse Practitioner; Nurse Practitioner Family; ADMITTING PHYSICIAN Internal Medicine; ATTENDING PHYSICIAN Internal Medicine; CONSULT PHYSICIAN Internal Medicine; EMERGENCY PHYSICIAN Emergency Medicine; FAMILY PHYSICIAN Internal Medicine; OTHER PHYSICIAN Student in an Organized Health Care Education/Training Program
DX: I63.9 Cerebral infarction, unspecified (principal); E51.9 Thiamine deficiency, unspecified; H53.2 Diplopia; M54.2 Cervicalgia; H51.22 Internuclear ophthalmoplegia, left eye; H93.19 Tinnitus, unspecified ear; M85.80 Other specified disorders of bone density and structure, unspecified site; R26.2 Difficulty in walking, not elsewhere classified; H55.00 Unspecified nystagmus; R73.03 Prediabetes; E78.5 Hyperlipidemia, unspecified; M50.322 Other cervical disc degeneration at C5-C6 level; K22.2 Esophageal obstruction; Z79.82 Long term (current) use of aspirin; Z91.040 Latex allergy status; Z87.11 Personal history of peptic ulcer disease
CPT/HCPCS: 70450; 70496; 70498; 70553; 72141; 74019; 74230; 80048; 80053; 80061; 82607; 82653; 82784; 83036; 83516; 83735; 83993; 84100; 84425; 84443; 85025; 85027; 85652; 86038; 86140; 86231; 86618; 86780; 87045; 87046; 87328; 87329; 87389; 87427; 92610; 92611; 93005; 93306; 96374; 97162; 97166; 97530; 99285; A9575; Q9967

== ENCOUNTER → 2023-12-05 13:47 | Outpatient (REF) | payer MEDICARE, OTHER, SELFPAY | LOC: WDC 13:47 | PROVIDERS: ATTENDING PHYSICIAN Nurse Practitioner Adult Health | DX: Z12.31 Encounter for screening mammogram for malignant neoplasm of breast (principal); M85.80 Other specified disorders of bone density and structure, unspecified site; Z78.0 Asymptomatic menopausal state | CPT/HCPCS: 77063; 77067; 77080 ==

== ENCOUNTER → 2024-01-01 16:41 | Outpatient (REF) | payer MEDICARE, OTHER, SELFPAY | LOC: RAD 16:41 | PROVIDERS: ATTENDING PHYSICIAN Nurse Practitioner Adult Health | DX: R60.0 Localized edema (principal) | CPT/HCPCS: 93971 ==

== ENCOUNTER → 2024-01-10 10:25 | Outpatient (REF) | payer MEDICARE, OTHER, SELFPAY ==
[2024-01-10 15:33] LABS: % Basophils 0.3 % (0-2); % Eosinophils 2.3 % (0-6); % Immature Granulocytes 0.2 % (0-0.5); % Lymphocytes 26.2 % (20.5-51.1); % Monocytes 10.1 % (1.7-9.3); % Neutrophils 60.9 % (42.2-75.2); Absolute Eosinophils 0.1 10^3/uL (0-0.7); Absolute Lymphocytes 1.6 10^3/uL (1.2-3.4); Absolute Monocytes 0.6 10^3/uL (0.1-0.6); Absolute Neutrophils 3.7 10^3/uL (1.4-6.5); Hematocrit 39.6 % (37.0-47.0); Hemoglobin 13.3 g/dL (12.0-16.0); Mean Corp Hgb Conc. 33.6 g/dL (33.0-37.0); Mean Corpuscular Hgb 31.8 pg (27.0-31.0); Mean Corpuscular Volume 94.7 fL (81.0-99.0); Mean Platelet Volume 9.6 fL (7.4-10.4); Nucleated Red Blood Cells % 0 %; Platelet Count 243 10^3/uL (130-400); Red Blood Cell Count 4.18 10^6/uL (4.20-5.40); Red Cell Dist. Width 13.3 % (11.5-14.5); White Blood Cell Count 6.1 10^3/uL (4.8-10.8)
[2024-01-10 15:48] LABS: ALT (SGPT) 15 U/L (0-35); AST (SGOT) 24 U/L (14-36); Albumin 4.2 g/dl (3.5-5.0); Alkaline Phosphatase 73 U/L (38-126); Blood Urea Nitrogen 21 mg/dl (7-17); Calcium 9.8 mg/dl (8.4-10.2); Carbon Dioxide 26 mmol/L (22-30); Chloride 106 mmol/L (98-107); Glucose 102 mg/dl (70-99); Sodium 139 mmol/L (135-145); Total Bilirubin 0.6 mg/dl (0.2-1.3); Total Protein 6.7 g/dl (6.3-8.2); eGFR > 60.00
[2024-01-12 13:25] LABS: Protein S Total Antigen 128 % (63-126)
[2024-01-12 13:45] LABS: Homocysteine 8 umol/L (0-15)
[2024-01-12 16:51] LABS: Protein C, Total Antigen >95 % (63-153)
[2024-01-12 19:01] LABS: Beta-2-Glycoprotein I Ab. IgG <10 SGU (<=20); Beta-2-Glycoprotein I Ab. IgM <10 SMU (<=20)
[2024-01-12 19:06] LABS: Cardiolipin IgA Antibody <10 APL (<=11); Cardiolipin IgM Antibody <10 MPL (<=12); Cardiolipin Igg Antibody <10 GPL (<=14)
[2024-01-13 01:02] LABS: Beta-2-Glycoprotein I Ab. IgA <10 SAU (<=20)
[2024-01-13 20:22] LABS: Factor V Leiden Negative; Factor V Leiden Specimen Whole Blood
[2024-01-16 15:06] LABS: Phosphatidylserine Ab, IgA 0 APS (0-19); Phosphatidylserine Ab, IgG 0 GPS (0-15); Phosphatidylserine Ab, IgM 7 MPS (0-21)
== END ==
LOC: REG 10:25
PROVIDERS: ATTENDING PHYSICIAN Nurse Practitioner Adult Health
DX: I82.409 Acute embolism and thrombosis of unspecified deep veins of unspecified lower extremity (principal); Z86.73 Personal history of transient ischemic attack (TIA), and cerebral infarction without residual deficits
CPT/HCPCS: 36415; 80053; 81241; 83090; 85025; 85302; 85305; 85730; 86146; 86147; 86148

== ENCOUNTER → 2024-02-27 16:53 | Outpatient (REF) | payer MEDICARE, OTHER, SELFPAY ==
[2024-02-27 17:46] LABS: INR 0.96; PT 12.6 Sec (11.4-14.6)
[2024-02-27 17:48] LABS: D-Dimer 0.43 ug/mlFEU (0.00-0.50)
[2024-02-29 22:18] LABS: Anti-Thrombin III Activity 115 % (76-128)
[2024-02-29 23:33] LABS: Anti-Xa Qualitative Interp Not Performed (Not Present); Anticoagulant Med Neutralizati Not Performed (Not Performed); Hexagonal Phospholipid Confirm Not Performed s (<=7.9); Neutralized PTT-LA Ratio Not Performed (<=1.20); Neutralized dRVTT Screen Ratio Not Performed (<=1.20); PTT-LA Ratio 0.87 (<=1.20); Prothrombin Time 12.3 s (12.0-15.5); Thrombin Time Not Performed s (<=19.5); dRVTT 1.1 Mix Ratio Not Performed (<=1.20); dRVTT Confirmation Ratio Not Performed (<=1.20); dRVTT Screen Ratio 0.94 (<=1.20)
== END ==
LOC: REG 16:53
PROVIDERS: ATTENDING PHYSICIAN Internal Medicine Hematology & Oncology; FAMILY PHYSICIAN Internal Medicine
DX: I82.401 Acute embolism and thrombosis of unspecified deep veins of right lower extremity (principal); Z01.42 Encounter for cervical smear to confirm findings of recent normal smear following initial abnormal smear; R87.810 Cervical high risk human papillomavirus (HPV) DNA test positive; I82.409 Acute embolism and thrombosis of unspecified deep veins of unspecified lower extremity
CPT/HCPCS: 36415; 85300; 85379; 85610; 85613; 85730

== ENCOUNTER → 2024-03-13 08:25 | Outpatient (REF) | payer MEDICARE, OTHER, SELFPAY | LOC: MRI 3T 08:25 | PROVIDERS: ATTENDING PHYSICIAN Obstetrics & Gynecology Gynecologic Oncology; FAMILY PHYSICIAN Internal Medicine | DX: Z01.42 Encounter for cervical smear to confirm findings of recent normal smear following initial abnormal smear (principal); R87.810 Cervical high risk human papillomavirus (HPV) DNA test positive; I82.401 Acute embolism and thrombosis of unspecified deep veins of right lower extremity; I82.409 Acute embolism and thrombosis of unspecified deep veins of unspecified lower extremity | CPT/HCPCS: 72197; A9575 ==

== ENCOUNTER → 2024-04-23 06:39 | Day surgery (SDC) | payer MEDICARE, OTHER, SELFPAY | LOC: GI 06:39 | PROVIDERS: ATTENDING PHYSICIAN Internal Medicine Gastroenterology | DX: K22.2 Esophageal obstruction (principal); K44.9 Diaphragmatic hernia without obstruction or gangrene; R13.14 Dysphagia, pharyngoesophageal phase | CPT/HCPCS: 43249 ==

== ENCOUNTER → 2024-05-14 08:28 | Outpatient (REF) | payer MEDICARE, OTHER, SELFPAY ==
[2024-05-14 09:47] LABS: % Basophils 0.8 % (0-2); % Eosinophils 2.2 % (0-6); % Immature Granulocytes 0.4 % (0-0.5); % Lymphocytes 25.7 % (20.5-51.1); % Neutrophils 59.9 % (42.2-75.2); Absolute Eosinophils 0.1 10^3/uL (0-0.7); Absolute Lymphocytes 1.3 10^3/uL (1.2-3.4); Absolute Monocytes 0.6 10^3/uL (0.1-0.6); Hematocrit 42.1 % (37.0-47.0); Hemoglobin 13.8 g/dL (12.0-16.0); Mean Corp Hgb Conc. 32.8 g/dL (33.0-37.0); Mean Corpuscular Hgb 29.1 pg (27.0-31.0); Mean Corpuscular Volume 88.6 fL (81.0-99.0); Mean Platelet Volume 9.6 fL (7.4-10.4); Nucleated Red Blood Cells % 0 %; Platelet Count 182 10^3/uL (130-400); Red Blood Cell Count 4.75 10^6/uL (4.20-5.40); Red Cell Dist. Width 13.2 % (11.5-14.5)
[2024-05-14 10:03] LABS: D-Dimer < 0.27 ug/mlFEU (0.00-0.50)
[2024-05-14 10:21] LABS: ALT (SGPT) 40 U/L (0-35); AST (SGOT) 37 U/L (14-36); Albumin 4.6 g/dl (3.5-5.0); Alkaline Phosphatase 83 U/L (38-126); Blood Urea Nitrogen 21 mg/dl (7-17); Calcium 9.9 mg/dl (8.4-10.2); Carbon Dioxide 31 mmol/L (22-30); Chloride 104 mmol/L (98-107); Glucose 99 mg/dl (70-99); Potassium 3.9 mmol/L (3.5-5.1); Sodium 144 mmol/L (135-145); Total Bilirubin 0.7 mg/dl (0.2-1.3); Total Protein 7.2 g/dl (6.3-8.2); eGFR > 60.00
[2024-05-14 10:29] LABS: C-Reactive Protein < 5.00 mg/L (0.0-10.00)
[2024-05-14 10:46] LABS: Vitamin D, 25-OH*** 53.6 ng/mL (30-80)
[2024-05-14 10:59] LABS: TSH 2.87 uIU/ml (0.47-4.68)
[2024-05-15 10:51] LABS: Intact PTH 31.4 pg/ml (13.6-85.8)
[2024-05-15 15:47] LABS: tTG IgA Antibody 7.7 EU/ml (0-19)
[2024-05-15 23:33] LABS: IgA 236 mg/dl (70-400)
[2024-05-16 23:59] LABS: Protein S Free Antigen 106 % (55-123)
[2024-05-17 00:22] LABS: Beta-2-Microglobulin 1.9 mg/L (<=3.0)
[2024-05-17 01:40] LABS: Beta-2-Glycoprotein I Ab. IgA <10 SAU (<=20)
[2024-05-17 01:59] LABS: Endomysial IgA Antibody Titer <1:10 (<1:10)
[2024-05-17 08:10] LABS: Cardiolipin IgA Antibody <10 APL (<=11); Cardiolipin IgM Antibody 10 MPL (<=12); Cardiolipin Igg Antibody <10 GPL (<=14)
== END ==
LOC: REG 08:28
PROVIDERS: ATTENDING PHYSICIAN Internal Medicine Rheumatology; FAMILY PHYSICIAN Internal Medicine; REFERRING PHYSICIAN Internal Medicine Hematology & Oncology
DX: D47.2 Monoclonal gammopathy (principal); E07.9 Disorder of thyroid, unspecified; E21.5 Disorder of parathyroid gland, unspecified; E55.9 Vitamin D deficiency, unspecified; K90.0 Celiac disease; M41.9 Scoliosis, unspecified; M81.0 Age-related osteoporosis without current pathological fracture; R29.890 Loss of height; Z68.27 Body mass index [BMI] 27.0-27.9, adult; Z79.899 Other long term (current) drug therapy; I82.401 Acute embolism and thrombosis of unspecified deep veins of right lower extremity; Z01.42 Encounter for cervical smear to confirm findings of recent normal smear following initial abnormal smear; R87.810 Cervical high risk human papillomavirus (HPV) DNA test positive; I82.409 Acute embolism and thrombosis of unspecified deep veins of unspecified lower extremity
CPT/HCPCS: 36415; 72072; 72100; 80053; 81240; 81241; 82232; 82306; 82784; 83516; 83521; 83970; 84155; 84165; 84443; 85025; 85300; 85305; 85306; 85379; 85610; 85613; 85730; 86140; 86146; 86147; 86231; 86334

== ENCOUNTER → 2024-05-22 09:49 | Outpatient (REF) | payer MEDICARE, OTHER, SELFPAY ==
[2024-05-22 15:09] LABS: Urine Calcium 10.7 mg/dl
[2024-05-22 15:28] LABS: 24 Hour Urine Calcium 128.4 mg/day; 24 Hour Urine Total Volume 1200 ml
== END ==
LOC: REG 09:49
PROVIDERS: ATTENDING PHYSICIAN Internal Medicine Rheumatology; FAMILY PHYSICIAN Internal Medicine
DX: D47.2 Monoclonal gammopathy (principal); E07.9 Disorder of thyroid, unspecified; E21.5 Disorder of parathyroid gland, unspecified; E55.9 Vitamin D deficiency, unspecified; K90.0 Celiac disease; M41.9 Scoliosis, unspecified; M81.0 Age-related osteoporosis without current pathological fracture; R29.890 Loss of height; Z68.27 Body mass index [BMI] 27.0-27.9, adult; Z79.899 Other long term (current) drug therapy
CPT/HCPCS: 36415; 81050; 82340

== ENCOUNTER → 2024-06-13 08:46 | Outpatient (REF) | payer MEDICARE, OTHER, SELFPAY ==
[2024-06-13 09:28] LABS: D-Dimer 0.37 ug/mlFEU (0.00-0.50)
== END ==
LOC: REG 08:46
PROVIDERS: ATTENDING PHYSICIAN Internal Medicine Hematology & Oncology; FAMILY PHYSICIAN Internal Medicine
DX: I82.401 Acute embolism and thrombosis of unspecified deep veins of right lower extremity (principal); Z01.42 Encounter for cervical smear to confirm findings of recent normal smear following initial abnormal smear; R87.810 Cervical high risk human papillomavirus (HPV) DNA test positive; I82.409 Acute embolism and thrombosis of unspecified deep veins of unspecified lower extremity
CPT/HCPCS: 36415; 85379

== ENCOUNTER → 2024-07-03 08:12 | Outpatient (REF) | payer MEDICARE, OTHER, SELFPAY ==
[2024-07-03 10:26] LABS: ALT (SGPT) 31 U/L (0-35); AST (SGOT) 35 U/L (14-36); Albumin 4.3 g/dl (3.5-5.0); Alkaline Phosphatase 78 U/L (38-126); Direct Bilirubin 0.1 mg/dl (0.0-0.4); Total Bilirubin 0.6 mg/dl (0.2-1.3); Total Protein 6.7 g/dl (6.3-8.2)
== END ==
LOC: REG 08:12
PROVIDERS: ATTENDING PHYSICIAN Internal Medicine Hematology & Oncology; FAMILY PHYSICIAN Internal Medicine Rheumatology; REFERRING PHYSICIAN Internal Medicine
DX: D47.2 Monoclonal gammopathy (principal); E07.9 Disorder of thyroid, unspecified; E21.5 Disorder of parathyroid gland, unspecified; E55.9 Vitamin D deficiency, unspecified; K90.0 Celiac disease; M41.9 Scoliosis, unspecified; M81.0 Age-related osteoporosis without current pathological fracture; R29.890 Loss of height; R94.5 Abnormal results of liver function studies; Z79.899 Other long term (current) drug therapy; I82.401 Acute embolism and thrombosis of unspecified deep veins of right lower extremity; Z01.42 Encounter for cervical smear to confirm findings of recent normal smear following initial abnormal smear; R87.810 Cervical high risk human papillomavirus (HPV) DNA test positive; I82.409 Acute embolism and thrombosis of unspecified deep veins of unspecified lower extremity
CPT/HCPCS: 36415; 80076; 85379

== ENCOUNTER → 2024-07-18 08:30 | Outpatient (REF) | payer MEDICARE, OTHER, SELFPAY ==
[2024-07-18 09:47] LABS: Glucose 102 mg/dl (70-99); HDL Cholesterol 84 mg/dl; LDL Cholesterol, Calculated 96 mg/dl; Total Cholesterol 207 mg/dl (50-199); Triglyceride 137 mg/dl (10-149); Very Low Density Lipoprotein 27 mg/dl (0-30)
[2024-07-18 10:31] LABS: Free T3 3.47 pg/ml (2.77-5.27); Free T4 0.89 ng/dl (0.78-2.19)
[2024-07-18 10:44] LABS: TSH 3.39 uIU/ml (0.47-4.68)
[2024-07-18 10:52] LABS: Glycohemoglobin (HgbA1c) 5.8 % (4.0-5.6)
== END ==
LOC: REG 08:30
PROVIDERS: ATTENDING PHYSICIAN Internal Medicine Endocrinology, Diabetes & Metabolism; FAMILY PHYSICIAN Internal Medicine
DX: E03.9 Hypothyroidism, unspecified (principal); R73.03 Prediabetes; E78.5 Hyperlipidemia, unspecified
CPT/HCPCS: 36415; 80061; 82947; 83036; 84439; 84443; 84481

== ENCOUNTER → 2024-10-03 07:56 | Outpatient (REF) | payer MEDICARE, OTHER, SELFPAY ==
[2024-10-03 09:31] LABS: D-Dimer 0.42 ug/mlFEU (0.00-0.50)
[2024-10-03 11:08] LABS: HDL Cholesterol 86 mg/dl; LDL Cholesterol, Calculated 61 mg/dl; Total Cholesterol 157 mg/dl (50-199); Triglyceride 50 mg/dl (10-149); Very Low Density Lipoprotein 10 mg/dl (0-30)
== END ==
LOC: REG 07:56
PROVIDERS: ATTENDING PHYSICIAN Nurse Practitioner Adult Health; FAMILY PHYSICIAN Internal Medicine Hematology & Oncology
DX: I82.401 Acute embolism and thrombosis of unspecified deep veins of right lower extremity (principal); Z01.42 Encounter for cervical smear to confirm findings of recent normal smear following initial abnormal smear; R87.810 Cervical high risk human papillomavirus (HPV) DNA test positive; I82.409 Acute embolism and thrombosis of unspecified deep veins of unspecified lower extremity; Z86.73 Personal history of transient ischemic attack (TIA), and cerebral infarction without residual deficits; I63.9 Cerebral infarction, unspecified
CPT/HCPCS: 36415; 80061; 85379

== ENCOUNTER → 2024-12-10 12:00 | Outpatient (REF) | payer MEDICARE, OTHER, SELFPAY | LOC: DHSLP 12:00 | PROVIDERS: ATTENDING PHYSICIAN Internal Medicine Critical Care Medicine | DX: G47.33 Obstructive sleep apnea (adult) (pediatric) (principal) | CPT/HCPCS: 95810 ==

== ENCOUNTER → 2024-12-10 13:47 | Outpatient (REF) | payer MEDICARE, OTHER, SELFPAY | LOC: WDC 13:47 | PROVIDERS: ATTENDING PHYSICIAN Nurse Practitioner Adult Health | DX: Z12.31 Encounter for screening mammogram for malignant neoplasm of breast (principal) | CPT/HCPCS: 77063; 77067 ==

== ENCOUNTER → 2024-12-24 07:55 | Outpatient (REF) | payer MEDICARE, OTHER, SELFPAY | LOC: RAD 07:55 | PROVIDERS: ATTENDING PHYSICIAN Internal Medicine Gastroenterology; FAMILY PHYSICIAN Internal Medicine | DX: K76.0 Fatty (change of) liver, not elsewhere classified (principal) | CPT/HCPCS: 76700 ==

== ENCOUNTER → 2025-04-15 08:29 | Outpatient (REF) | payer MEDICARE, OTHER, SELFPAY | LOC: REG 08:29 | PROVIDERS: ATTENDING PHYSICIAN Internal Medicine Gastroenterology; FAMILY PHYSICIAN Internal Medicine | DX: K76.0 Fatty (change of) liver, not elsewhere classified (principal) | CPT/HCPCS: 36415 ==

== ENCOUNTER → 2025-06-03 08:15 | Outpatient (REF) | payer MEDICARE, OTHER, SELFPAY ==
[2025-06-03 09:02] LABS: Hematocrit 42.4 % (37.0-47.0); Hemoglobin 14.0 g/dL (12.0-16.0); Mean Corp Hgb Conc. 33.0 g/dL (33.0-37.0); Mean Corpuscular Volume 91.0 fL (81.0-99.0); Nucleated Red Blood Cells % 0 %; Platelet Count 203 10^3/uL (130-400); Red Cell Dist. Width 13.7 % (11.5-14.5)
[2025-06-03 09:36] LABS: ALT (SGPT) 38 U/L (0-35); AST (SGOT) 34 U/L (14-36); Albumin 4.3 g/dl (3.5-5.0); Alkaline Phosphatase 69 U/L (38-126); Blood Urea Nitrogen 23 mg/dl (7-17); Calcium 9.7 mg/dl (8.4-10.2); Carbon Dioxide 30 mmol/L (22-30); Chloride 105 mmol/L (98-107); Glucose 101 mg/dl (70-99); Potassium 4.4 mmol/L (3.5-5.1); Sodium 140 mmol/L (135-145); Total Protein 7.0 g/dl (6.3-8.2); eGFR > 60.00
[2025-06-03 09:43] LABS: Vitamin D, 25-OH*** 110 ng/mL (30-80)
== END ==
LOC: REG 08:15
PROVIDERS: ATTENDING PHYSICIAN Physician Assistant; FAMILY PHYSICIAN Internal Medicine
DX: E55.9 Vitamin D deficiency, unspecified (principal); M81.0 Age-related osteoporosis without current pathological fracture; Z79.899 Other long term (current) drug therapy
CPT/HCPCS: 36415; 80053; 82306; 85025

== ENCOUNTER → 2025-07-16 08:51 | Outpatient (REF) | payer MEDICARE, OTHER, SELFPAY ==
[2025-07-16 10:10] LABS: Glycohemoglobin (HgbA1c) 6.0 % (4.0-5.9)
[2025-07-16 10:22] LABS: ALT (SGPT) 31 U/L (0-35); AST (SGOT) 30 U/L (14-36); Albumin 4.3 g/dl (3.5-5.0); Alkaline Phosphatase 72 U/L (38-126); Blood Urea Nitrogen 27 mg/dl (7-17); Calcium 10.0 mg/dl (8.4-10.2); Carbon Dioxide 27 mmol/L (22-30); Chloride 108 mmol/L (98-107); Glucose 106 mg/dl (70-99); HDL Cholesterol 104 mg/dl; LDL Cholesterol, Calculated 62 mg/dl; Potassium 4.1 mmol/L (3.5-5.1); Sodium 141 mmol/L (135-145); Total Protein 7.0 g/dl (6.3-8.2); Very Low Density Lipoprotein 14 mg/dl (0-30); eGFR 51.75
[2025-07-16 10:35] LABS: Free T3 3.28 pg/ml (2.77-5.27); Vitamin D, 25-OH*** 81.8 ng/mL (30-80)
[2025-07-16 10:48] LABS: TSH 2.69 uIU/ml (0.47-4.68)
== END ==
LOC: REG 08:51
PROVIDERS: ATTENDING PHYSICIAN Internal Medicine Endocrinology, Diabetes & Metabolism; FAMILY PHYSICIAN Internal Medicine
DX: R53.83 Other fatigue (principal); E28.1 Androgen excess; I63.9 Cerebral infarction, unspecified; R73.03 Prediabetes; E55.9 Vitamin D deficiency, unspecified; E03.9 Hypothyroidism, unspecified; E78.5 Hyperlipidemia, unspecified
CPT/HCPCS: 36415; 80053; 80061; 82306; 83036; 84270; 84402; 84403; 84439; 84443; 84481; 86376